=== PATIENT | male | born 1945 | race Two or more races ===

== ENCOUNTER 2024-10-08 16:27 | Inpatient (IN) | payer OTHER ==
[~2024-10-08] VITALS: Ht 167.6 cm; Wt 84.7 kg
[2024-10-08] VITALS (7 sets, daily range): BP systolic 115–150; BP diastolic 73–100; PULSE 115–116; RESP 17–20; TEMP 97.8; O2SAT 92–100
--- NOTE | 2024-10-08 17:13 | DVH ---
CHEST RADIOGRAPH Indication: sob/weak Technique: Single frontal view of the chest was obtained COMPARISON: None FINDINGS: Lines and Tubes: Median sternotomy Lungs: Multifocal airspace disease Pleura: Small right pleural effusion No pneumothorax. Cardiomediastinal contours: Cardiomegaly Bones: Unremarkable IMPRESSION: Pulmonary edema
--- NOTE | 2024-10-08 17:16 | ED.PDOC ---
HPI Comments 78 y/o obese M is BIBA for c/o generalized weakness and shortness of breath, today. Per EMS report, patient endorses attending his spouse's appointment at a [facility] when staff began noticing him pale and maher in appearance and finding him hypertensive and hypoxic after checking his vitals then. Patient reports on being weak for several months. He reports being compliant taking his medications, this morning. Patient denies any chest pain, cough, congestion, fever, chills, or other associated symptoms or modifying factors at this time. En route, patient was placed on 2LPM O2 en route Vitals on scene: Blood pressure of 169/88, pulse rate of 110, respiratory rate of 16, and a SpO2 of 90%RA, blood glucose 233 Vitals upon ED arrival: Blood pressure of 170/89, pulse of 116, respiratory rate of 18, and a Spo2 of 99% on 2LPM NC Past medical history: DMII w/peripheral neuropathy, HLD, HTN, CKFIV, CVA, NSTEMI, COPD, asthma, angina, atherosclerosis or aorta, CAD, osteoarthritis, medication noncompliance, pulmonary HTN, hyperparathyroidism, gout, BPH, chronic respiratory failure, TIA, urinary bladder cancer, osteopenia, sleep apnea, anemia, obesity Past surgical history: cystoscopy and transurethral resection of bladder tumor, colonoscopy, hemorrhoidectomy, appendectomy, nasal polypectomy, angiogram, cataract surgery, CABG, thoracoscopic lobectomy Former tobacco cigarette smoker HPI: Poor Historian. Past Medical History: Past Surgical History: REVIEW OF SYSTEMS: CONSTITUTIONAL: Denies acute: fever, diaphoresis, chills, HEAD: Denies acute: headache, photophobia Eyes: Denies acute: Double vision, vision loss, eye pain, eye discharge. EARS: Denies acute: tinnitus, hearing loss, ear discharge, ear pain, THROAT: Denies acute: sore throat, swelling, difficulty swallowing , pain with swallowing, change in voice. NECK: Denies acute: neck pain, neck swelling, stiff neck. HEART: Denies acute : chest pain, palpitations, LUNGS: Denies acute: wheezing, cough, hemoptysis ABDOMEN: Denies acute: abdominal pain, Nausea, Vomiting, diarrhea, melena , hematemesis, hematochezia SKIN: Denies acute: rash, redness, lesions, itchiness. EXTREMITIES: Denies acute: calf pain, numbness, tingling, weakness, denies pain in extremity. Denies acute: Low back pain. Neuro: Denies acute: focal neurological deficit, motor or sensory focal neurological deficit, tremors, seizure like activity, confusion, dizziness, change in mental status, loss of bowel or bladder function, cauda equina like symptoms. : Denies acute: dysuria, hematuria, flank pain, increase in urinary frequency. PSYCH: Denies acute: hallucination, suicidal ideation, homicidal ideation. PHYSICAL EXAM: General: ----[id number]----acute distress, awake and alert. Head: normocephalic, atraumatic. Neck: supple, trachea is midline, no swelling. Throat: Normal phonation. Eyes:, no erythema, no purulent discharge, no proptosis, no icterus. Heart: regular tachycardic, no significant murmur appreciated. Lungs: no apparent respiratory distress, Able to speak in full sentences. No wheezing, no rhonchi, no crackles. No stridors Clear to auscultation bilaterally. Abdomen: non tender to palpation, non distended, soft, no guarding, no rebound, + bowel sounds. Neuro: Awake, Alert, oriented to name, self, situation, follows commands GCS=15. Speech is normal. Skin: no petechia, no purpura, no cyanosis, non-pale, not jaundice. Lower extremities: --2/4 b/l - Pitting edema no deformity, no focal swelling, no calf TTP. Makes eye contact. moves all four extremities. Face: no apparent facial droop. ED COURSE: At this time 9:44 p.m. our I spoke with Dr. Phillips the office machine embossograph operator on-call again updated him of the 3rd troponin that is rising and patient tachycardic. He he agrees with our heparin treatment and said he will follow up with the patient in consult. No further recommendations. Time Seen by MD: 16:30 Reviewed Notes: Nurses Notes, Medications, Allergies Allergies: Coded Allergies: Ibuprofen (Verified Allergy, Intermediate, 10/08/24) Home Meds Reported Medications Clopidogrel Bisulfate (Plavix) 75 Mg Tab, 1 TAB PO DAILY, #90 TAB 1 Refill 10/08/24 Information Source: Patient, Emergency Med Personnel Mode of Arrival: Ambulatory Was a procedure done? Was a procedure done?: No CP Differential Dx Differential Diagnosis: Other (DDx include ACS, unstable angina, anxiety, PE, pneumothroax, neoplasm, cardiac ischemia, COPD, asthma, CHF, pleural effusion, tobacco abuse, pneumonia, hypoxia, hypercapnia, anemia., infection/sepsis., pulmonary edema. Asthma, Cardiac tamponade, infection.) Differential Diagnosis: Other X-Ray, Labs, Meds, VS Vital Signs Date Time Temp Pulse Resp B/P (MAP) Pulse Ox O2 Delivery O2 Flow Rate FiO2 10/08/24 19:25 115 19 99 Nasal Cannula* 2 28 10/08/24 19:25 98.6 115 19 156/101 (119) 99 98.6 10/08/24 19:22 115 10/08/24 19:02 115 17 99 Nasal Cannula* 2 28 10/08/24 18:51 98.3 115 17 150/100 (117) 99 98.3 10/08/24 18:43 150/100 10/08/24 18:15 115 10/08/24 17:31 115 10/08/24 17:00 98.0 116 16 170/89 (116) 99 98.0 10/08/24 16:39 115 Lab Test 10/08/24 18:07 10/08/24 17:02 Range/Units Troponin I High Sensitivity 49 45 </=54 ng/L White Blood Count 7.6 4.4-10.8 10^3/uL Red Blood Count 3.93 L 4.5-5.90 10^6/uL Hemoglobin 11.2 L 13.5-17.5 g/dL Hematocrit 35.0 L 41.0-53.0 % Mean Corpuscular Volume 89.2 80.0-100.0 fL Mean Corpuscular Hemoglobin 28.5 28.0-32.0 pg Mean Corpuscular Hemoglobin Concent 32.0 32.0-36.0 g/dL Red Cell Distribution Width 18.0 H 11.8-14.3 % Platelet Count 192 140-450 10^3/uL Mean Platelet Volume 9.7 6.9-10.8 fL Neutrophils (%) (Auto) 75.2 37.0-80.0 % Lymphocytes (%) (Auto) 15.6 10.0-50.0 % Monocytes (%) (Auto) 6.5 0.0-12.0 % Eosinophils (%) (Auto) 2.0 0.0-7.0 % Basophils (%) (Auto) 0.7 0.0-2.0 % Neutrophils # (Auto) 5.7 1.6-8.6 10 ^3/uL Lymphocytes # (Auto) 1.2 0.4-5.4 10 ^3/uL Monocytes # (Auto) 0.5 0-1.3 10 ^3/uL Eosinophils # (Auto) 0.2 0-0.8 10 ^3/uL Basophils # (Auto) 0.1 0-0.2 10 ^3/uL Nucleated Red Blood Cells 0.0 % Prothrombin Time 10.9 9.3-11.8 sec Prothrombin Time INR 1.03 0.9-1.15 Activated Partial Thromboplast Time 25.6 24.5-34.5 SEC D-Dimer, Quantitative 3.85 H 0.0-0.49 mg/L FEU Sodium Level 139 136-145 mmol/L Potassium Level 5.2 H 3.5-5.1 mmol/L Chloride Level 108 H 98-107 mmol/L Carbon Dioxide Level 22 20-31 mmol/L Anion Gap 9 5-15 Blood Urea Nitrogen 52 H 9-23 mg/dL Creatinine 3.51 H 0.700-1.30 mg/dL Glomerular Filtration Rate Calc 17 >90 mL/min BUN/Creatinine Ratio 14.8 10.0-20.0 Serum Glucose 256 H 74-106 mg/dL Lactic Acid Level 1.1 0.4-2.0 mmol/L Calcium Level 8.9 8.7-10.4 mg/dL Magnesium Level 1.6 1.6-2.6 mg/dL Total Bilirubin 0.3 0.2-1.0 mg/dL Aspartate Amino Transferase (AST) 25 13-40 U/L Alanine Aminotransferase (ALT) 28 7-40 U/L Alkaline Phosphatase 94 46-116 U/L B-Type Natriuretic Peptide 311.28 0-100 pg/mL Total Protein 6.2 5.7-8.2 g/dL Albumin 3.7 3.2-4.8 g/dL [place] [id number] Ph: [phone] DIAGNOSTIC IMAGING Diagnostic Imaging Report : [id number] Signed PATIENT: BENITA CHANDLER ACCT: [id number] UNIT: [id number] : 1945 LOC: [facility] ROOM / BED: [facility] / A AGE / SEX: 78 / M ADM STATUS: ADM IN SERVICE 39 ORDERING PHYSICIAN: MCKAYLA SORIA DO PROCEDURE(s): BLDVT - BiLat Lower DVT REASON: sob ORDER NUMBER(s): [id number], ACCESSION NUMBER(s): [id number] Bilateral lower extremity venous duplex Clinical History: sob Comparison: None Technique: Duplex Doppler evaluation of the deep venous systems of both lower extremities from the common femoral veins to the popliteal veins including color Doppler and spectral/pulsed waveform analysis was performed. Findings: RIGHT SIDE: The common femoral vein demonstrates appropriate compressibility and waveform variability. There is compressibility/patency of the great saphenous vein at the proximal thigh. The femoral vein demonstrates appropriate compressibility and waveform variability. The deep femoral vein demonstrates appropriate compressibility and waveform variability. The popliteal vein demonstrates appropriate compressibility and waveform variability. There is normal compressibility at the tibioperoneal trunk. LEFT SIDE: The common femoral vein demonstrates appropriate compressibility and waveform variability. There is compressibility/patency of the great saphenous vein at the proximal thigh. The femoral vein demonstrates appropriate compressibility and waveform variability. The deep femoral vein demonstrates appropriate compressibility and waveform variability. The popliteal vein demonstrates appropriate compressibility and waveform variability. There is normal compressibility at the tibioperoneal trunk. Impression: 1. No right or left femoropopliteal venous thrombosis. HS:Y ATED BY: LAURA LUIS Jr., DO DICTATED DATE/TIME: 10/08/242307 SIGNED BY: LAURA LUIS Jr., DO SIGNED DATE/TIME: 10/08/242307 CC: [address] [address] Ph: [phone] DIAGNOSTIC IMAGING Diagnostic Imaging Report : [id number] Signed PATIENT: BENITA CHANDLER ACCT: [id number] UNIT: [id number] : 1945 LOC: OVERFLOW ROOM / BED: [facility] / A AGE / SEX: 78 / M ADM STATUS: ADM IN SERVICE 25 ORDERING PHYSICIAN: MCKAYLA SORIA DO PROCEDURE(s): CX2CT - CHEST WITHOUT CONTRAST REASON: sob ORDER NUMBER(s): [id number], ACCESSION NUMBER(s): [id number] Procedure: CT CHEST WITHOUT CONTRAST Reason for study/Clinical History: sob Comparison Study: None available at time of dictation. Exam Date: 10/08/2024 09:11 PM TECHNIQUE: Multidetector CT of the chest was performed from the lung apices to the upper abdomen without the use of intravenous contract. Axial, coronal and sagittal multiplanar reformats were performed. Radiation Dose Information: CT Dose: CTDI volume is 29.22 mGy. Dose-length product is 1194.1 mGy*cm The dose indicators for CT are the volume Computed Tomography (CT) Dose Index (CTDIvol) and the Dose Length Product (DLP), and are measured in units of mGy and mGy-cm, respectively. These indicators are not patient dose, but values generated from the CT scanner acquisition factors. The report includes radiation exposure data for exposures received during this examination. FINDINGS: Lower neck: Normal thyroid. Lungs: Small to moderate right pleural effusion with trace left pleural effusion. Heart/Vascular Structures: Normal heart size. No pericardial effusion. Lymph Nodes: No adenopathy Pleura: No pleural effusion or significant pneumothorax. Musculoskeletal: No acute osseous abnormality. Sternal wire sutures in place Soft tissues: Normal. Upper abdomen: Limited portions of the upper abdomen are unremarkable. IMPRESSION: 1. Small to moderate right pleural effusion with atelectasis in the right base. Radiation optimization: All CT scans at this facility use at least one of these dose optimization techniques: automated exposure control mA and/or kV adjustment per patient size (includes targeted exams where dose is matched to clinical indication) or iterative reconstruction. HS:Y ATED BY: LAURA LUIS Jr., DO DICTATED DATE/TIME: 10/08/242139 SIGNED BY: LAURA LUIS Jr., DO SIGNED DATE/TIME: 10/08/242139 CC: [place] [address] Ph: [phone] DIAGNOSTIC IMAGING Diagnostic Imaging Report : [id number] Signed PATIENT: BENITA CHANDLER ACCT: [id number] UNIT: [id number] : 1945 LOC: ER ROOM / BED: / AGE / SEX: 78 / M ADM STATUS: REG ER SERVICE 40 ORDERING PHYSICIAN: MCKAYLA SORIA DO PROCEDURE(s): CXRP - CHEST PORTABLE REASON: sob/weak ORDER NUMBER(s): [id number], ACCESSION NUMBER(s): [id number] CHEST RADIOGRAPH Indication: sob/weak Technique: Single frontal view of the chest was obtained COMPARISON: None FINDINGS: Lines and Tubes: Median sternotomy Lungs: Multifocal airspace disease Pleura: Small right pleural effusion No pneumothorax. Cardiomediastinal contours: Cardiomegaly Bones: Unremarkable IMPRESSION: Pulmonary edema ATED BY: DYLAN SPEAR MD DICTATED DATE/TIME: 10/08/241710 SIGNED BY: DYLAN SPEAR MD SIGNED DATE/TIME: 10/08/241710 CC: Time of 1ST Reevaluation: 16:30 Reevaluation 1ST: Unchanged Time of 2ND Reevaluation: 17:41 (Case discussed with our office machine embossograph operator Dr. Phillips. This is a new onset left bundle-branch block. I discussed the case with [facility] physician who says there were no records of the patient having left bundle-branch block in the past. Patient denies any chest pain. Our cardio logist recommends that the troponin is elevated to call the garage laborer and he will taken to the garage laborer.The case was discussed with the [facility] admitting team (HPI, physical exam, labs and diagnostic tests that were available at the time of disposition, ED course, treatment plan) on the phone. They authorized us to keep the patient our facility given his presentation and condition. Dr. Woodall. Authorization #[id number]) Time of 3RD Reevaluation: 20:25 (I spoke with the son and the at bedside. They said that patient has been feeling this way for a number of weeks since he got his most recent COVID shots which she did not want to have. He has been weak sleeping more often and dizzy and short of breath. They went to [facility] many times and they were not properly evaluated according to the family. Now on reassessment patient with minimal movement he becomes more tachycardic and feels more short of breath and weak.) Patient Education/Counseling: Diagnosis, Treatment Family Education/Counseling: Diagnosis, Treatment Comments Given the patient's tachycardia and shortness of breath and slight hypoxemia and generalized weakness, patient has multiple comorbidities and surgeries. Patient denies bleeding from anywhere. Patient has a high probability for PE. D-dimer is elevated. I started heparin bolus and a drip as anticoagulation. I am unable to obtain a CT angiogram of the chest given the patient's kidney function. V/Q scan is not available at this time. I discussed anticoagulation risks and benefits with the son at bedside and with the patient. The patient denies any active bleeding from anywhere or any recent surgeries. Patient presented with the above HPI.--hypoxemia and generalized weakness and tachycardia----workup was initiated. patient was found with the above mentioned diagnosis. the following medications were ordered: please refer to order lists of meds and tests obtained by myself Dr. Soria. Patient ED course and VS have been stabilized. Patient has been reassessed in the ED and remained in a stable condition. Pertinent incidental findings were discussed with the patient and/or family. Patient/family voices understanding and is agreeable with plan. Patient has been observed in the ED adequate length of time to insure improvement/stability. Escalation of care considered: Consideration of escalation to observation or admission Cardiology was consulted. [facility] was consulted. Patient was ADMITTED to the medicine team for further evaluation and treatment of their presentation. All the reports of any imaging studies that were ordered by myself were reviewed by myself. Departure 1 Departure Time of Disposition: 17:44 Impression: Primary Impression: Pulmonary edema Additional Impressions: Left bundle branch block Generalized weakness Pleural effusion Chronic kidney disease Disposition: ADMITTED INPATIENT Admit to: [facility] Condition: Guarded Discharged With: Self Critical Care Note Critical Care Time?: Yes (90 min-critical care time only) Heart Score Heart Score: Heart Score Response (Comments) Value History Highly Suspicious [address]-Deviation 2 Age >65 2 Risk Factors 1 or 2 risk factors 1 Troponin 1-2 x's Normal limit 1 Total 8 I personally scribed for MCKAYLA SORIA DO ([email or web address]) on 10/08/24 at 17:16. Mandie ctronically submitted by Ramana Alonzo ([email or web address]). MCKAYLA SORIA DO Oct 08, 2024 17:16
[2024-10-08 17:22] LABS: Basophils # (auto) 0.1 10 ^3/uL (0-0.2); Basophils % (auto) 0.7 % (0.0-2.0); Eosinophils # (auto) 0.2 10 ^3/uL (0-0.8); Hemoglobin 11.2 g/dL (13.5-17.5); Lymphocytes # (auto) 1.2 10 ^3/uL (0.4-5.4); Lymphocytes % (auto) 15.6 % (10.0-50.0); Mean Corpuscular Hemoglobin 28.5 pg (28.0-32.0); Mean Corpuscular Volume 89.2 fL (80.0-100.0); Monocytes # (auto) 0.5 10 ^3/uL (0-1.3); Monocytes % (auto) 6.5 % (0.0-12.0); Neutrophils # (auto) 5.7 10 ^3/uL (1.6-8.6); Neutrophils % (auto) 75.2 % (37.0-80.0); Platelet Count (auto) 192 10^3/uL (140-450); Red Blood Cells 3.93 10^6/uL (4.5-5.90); White Blood Cell 7.6 10^3/uL (4.4-10.8)
[2024-10-08 18:03] LABS: Alanine Aminotransferase 28 U/L (7-40); Albumin 3.7 g/dL (3.2-4.8); Alkaline Phosphatase 94 U/L (46-116); Anion Gap 9 (5-15); Aspartate Aminotransferase 25 U/L (13-40); BUN/Creatinine Ratio 14.8 (10.0-20.0); Bilirubin, Total 0.3 mg/dL (0.2-1.0); Calcium 8.9 mg/dL (8.7-10.4); Carbon Dioxide 22 mmol/L (20-31); Magnesium 1.6 mg/dL (1.6-2.6); Sodium 139 mmol/L (136-145); Total Protein 6.2 g/dL (5.7-8.2)
[2024-10-08 18:04] LABS: Blood Urea Nitrogen 52 mg/dL (9-23); Chloride 108 mmol/L (98-107); Glucose 256 mg/dL (74-106); Potassium 5.2 mmol/L (3.5-5.1)
--- NOTE | 2024-10-08 18:17 | ECG ---
[facility] Test Date: 2024-10-08 Test Time: 16:39:03 Pat Name: BENITA CHANDLER Department: ED Room: 0295T Gender: M Residential Treatment Counselor: maria de jesus : 1945 Requested By: MCKAYLA SORIA Order Number: [id number] Reading MD: Benita Quinn Measurements Intervals [place] Rate: 115 P: 99 [place]: 87 QRS: -51 QRSD: 152 T: 82 QT: 391 QTc: 541 Interpretive Statements Sinus tachycardia Left bundle branch block Electronically Signed On 10-10-2024 20:31:54 PDT by Benita Quinn Please click the below link to view image of tracing.
--- NOTE | 2024-10-08 18:17 | ECG ---
[facility] Test Date: 2024-10-08 Test Time: 17:31:29 Pat Name: BENITA CHANDLER Department: ED Room: 0295T Gender: M Senior Editor: maria de jesus : 1945 Requested By: MCKAYLA SORIA Order Number: [id number] Reading MD: Benita Quinn Measurements Intervals [place] Rate: 115 P: 123 [place]: 100 QRS: -54 QRSD: 149 T: 67 QT: 385 QTc: 533 Interpretive Statements Sinus tachycardia Left bundle branch block Electronically Signed On 10-10-2024 20:32:07 PDT by Benita Quinn Please click the below link to view image of tracing.
[2024-10-08] MEDS: FUROSEMIDE 100 MG/10ML VIAL IV ONE (18:43)
[2024-10-08] MEDS: HEPARIN SODIUM (PORCINE) 5000 UNITS/ML 1ML VIAL IV ONE (18:45)
[2024-10-08 18:56] LABS: INR 1.03 (0.9-1.15); Partial Thromboplastin Time 25.6 SEC (24.5-34.5); Prothrombin Time 10.9 sec (9.3-11.8)
[2024-10-08] MEDS ORDERED: MORPHINE SULFATE INJ 2 MG/ml SYRG IV PRN (20:00)
[2024-10-08] MEDS ORDERED: LORazepam 0.5 MG TAB PO PRN (20:00)
[2024-10-08] MEDS ORDERED: DEXTROSE (50%) 50ML SYRG IV PRN (20:00)
[2024-10-08] MEDS ORDERED: ONDANSETRON HCL 4 MG/2 ML VIAL IV PRN (20:00)
--- NOTE | 2024-10-08 20:05 | DVHHP2 ---
History of Present Illness Reason for Visit: sob History of Present Illness 70-year-old obese male comes to the ED for evaluation of shortness of breath patient was initially seen at urgent care for primary for Hernandez patient was noticed to be hypertensive short of breath and recommended he get evaluated the ED on ED evaluation the patient was shown have signs of fluid overload hospital has been extensive history of an NSTEMI COPD asthma diabetes type 2 as well as pulmonary hypertension and chronic respiratory failure patient was suggested for admission and further evaluation for management of shortness of breath Cardiovascular: CAD, HTN Pulmonary: COPD Review of Systems Constitutional: No: Fever, Chills, Sweats, Weakness, Malaise, Other Eyes: No: Pain, Vision change, Conjunctivae inflammation, Eyelid inflammation, Other, Redness ENT: No: Ear pain, Ear discharge, Nose pain, Nose discharge, Nose congestion, Mouth pain, Mouth swelling, Throat pain, Throat swelling, Other Respiratory: Cough, Shortness of breath, SOB with excertion Cardiovascular: Chest Pain; No: Palpitations, Orthopnea, Paroxysmal Noc. Dyspnea, Edema, Lt Headedness, Other Gastrointestinal: No: Nausea, Vomiting, Abdominal Pain, Diarrhea, Constipation, Melena, Hematochezia, Other Genitourinary: No Dysuria, No Frequency, No Incontinence, No Hematuria, No Retention, No Other Musculoskeletal: No: other, neck pain, shoulder pain, arm pain, back pain, hand pain, leg pain, foot pain Skin: No: Rash, Lesions, Jaundice, Bruising, Other Neurological: Weakness; No: Numbness, Incoordination, Change in speech, Confusion, Seizures, Other Allergies: Coded Allergies: Ibuprofen (Verified Allergy, Intermediate, 10/08/24) Medications Current Medications Medications Dose Ordered Sig/[place] Route Start Time Stop Time Status Last Admin Dose Admin Heparin Sodium/ Dextrose 250 ml @ 15.57 mls/ hr [id number] IV 10/08/24 18:30 UNV Exam Vital Signs Vital Signs Date Time Temp Pulse Resp B/P (MAP) Pulse Ox O2 Delivery O2 Flow Rate FiO2 10/08/24 19:22 115 10/08/24 19:02 17 99 Nasal Cannula* 2 28 10/08/24 18:51 98.3 150/100 (117) 98.3 Exam General: moderate distress, awake and alert. Head: normocephalic, atraumatic. Neck: supple, trachea is midline, no swelling. Throat: Normal phonation. Eyes:, no erythema, no purulent discharge, no proptosis, no icterus. Heart: regular tachycardic, no significant murmur appreciated. Lungs: no apparent respiratory distress, Able to speak in full sentences. No wheezing, no rhonchi, mild crackles. No stridors Abdomen: non tender to palpation, non distended, soft, no guarding, no rebound, + bowel sounds. Neuro: Awake, Alert, oriented to name, self, situation, follows commands GCS=15. Speech is normal. Skin: no petechia, no purpura, no cyanosis, non-pale, not jaundice. Lower extremities: --2/4 b/l - Pitting edema no deformity, no focal swelling, no calf TTP. moves all four extremities. Labs/Xrays Labs Test 10/08/24 18:07 10/08/24 17:02 Range/Units Troponin I High Sensitivity 49 </=54 ng/L White Blood Count 7.6 4.4-10.8 10^3/uL Red Blood Count 3.93 L 4.5-5.90 10^6/uL Hemoglobin 11.2 L 13.5-17.5 g/dL Hematocrit 35.0 L 41.0-53.0 % Mean Corpuscular Volume 89.2 80.0-100.0 fL Mean Corpuscular Hemoglobin 28.5 28.0-32.0 pg Mean Corpuscular Hemoglobin Concent 32.0 32.0-36.0 g/dL Red Cell Distribution Width 18.0 H 11.8-14.3 % Platelet Count 192 140-450 10^3/uL Mean Platelet Volume 9.7 6.9-10.8 fL Neutrophils (%) (Auto) 75.2 37.0-80.0 % Lymphocytes (%) (Auto) 15.6 10.0-50.0 % Monocytes (%) (Auto) 6.5 0.0-12.0 % Eosinophils (%) (Auto) 2.0 0.0-7.0 % Basophils (%) (Auto) 0.7 0.0-2.0 % Neutrophils # (Auto) 5.7 1.6-8.6 10 ^3/uL Lymphocytes # (Auto) 1.2 0.4-5.4 10 ^3/uL Monocytes # (Auto) 0.5 0-1.3 10 ^3/uL Eosinophils # (Auto) 0.2 0-0.8 10 ^3/uL Basophils # (Auto) 0.1 0-0.2 10 ^3/uL Nucleated Red Blood Cells 0.0 % Prothrombin Time 10.9 9.3-11.8 sec Prothrombin Time INR 1.03 0.9-1.15 Activated Partial Thromboplast Time 25.6 24.5-34.5 SEC D-Dimer, Quantitative 3.85 H 0.0-0.49 mg/L FEU Sodium Level 139 136-145 mmol/L Potassium Level 5.2 H 3.5-5.1 mmol/L Chloride Level 108 H 98-107 mmol/L Carbon Dioxide Level 22 20-31 mmol/L Anion Gap 9 5-15 Blood Urea Nitrogen 52 H 9-23 mg/dL Creatinine 3.51 H 0.700-1.30 mg/dL Glomerular Filtration Rate Calc 17 >90 mL/min BUN/Creatinine Ratio 14.8 10.0-20.0 Serum Glucose 256 H 74-106 mg/dL Lactic Acid Level 1.1 0.4-2.0 mmol/L Calcium Level 8.9 8.7-10.4 mg/dL Magnesium Level 1.6 1.6-2.6 mg/dL Total Bilirubin 0.3 0.2-1.0 mg/dL Aspartate Amino Transferase (AST) 25 13-40 U/L Alanine Aminotransferase (ALT) 28 7-40 U/L Alkaline Phosphatase 94 46-116 U/L B-Type Natriuretic Peptide 311.28 0-100 pg/mL Total Protein 6.2 5.7-8.2 g/dL Albumin 3.7 3.2-4.8 g/dL Assessment/Plan Assessment/Plan admit telemetry pulmonary edema suspected left bundle-branch block fluid overload chronic respiratory failure history of COPD hypertension Plan discussed with: Patient My Orders Orders - KRISTINE DEL CID MD Procedure Category Date Status Time Glucose Blood PHA 10/08/24 Transmitted (Accu-Chek Comfort 22:00 Agressive Insulin Ss PHA 10/09/24 Transmitted 07:00 Bedtime Insulin Ss PHA 10/08/24 Transmitted 22:00 Dextrose 50% Syringe PHA 10/08/24 Transmitted 20:00 Admit ADMIT 10/08/24 Transmitted 19:53 Code Status CODE 10/08/24 Transmitted 19:53 Vital Signs STACEY 10/08/24 Transmitted 19:53 Review Orders With STACEY 10/08/24 Transmitted Adm. 19:53 Consistent DIET 10/09/24 Transmitted Carb(Ccho)Diabetes Breakfast Lorazepam Tablet PHA 10/08/24 Transmitted (Ativan Tablet) 20:00 Docusate Sodium PHA 10/08/24 Transmitted Capsule (Colace 20:00 Acetaminophen Tablet PHA 10/08/24 Transmitted (Tylenol Tablet) 20:00 Notify Md Of Changes [facility] 10/08/24 Transmitted From Base 19:53 Advance Directive STACEY 10/08/24 Transmitted 19:53 Patient Condition ORDERS 10/08/24 Transmitted 19:53 Allergies STACEY 10/08/24 Transmitted 19:53 Ondansetron Hcl PHA 10/08/24 Transmitted (Zofran) 20:00 Morphine Sulfate PHA 10/08/24 Transmitted Injection 20:00 Notify Md Of Changes [facility] 10/08/24 Transmitted From Base 19:53 Make Ready Mechanic For [facility] 10/08/24 Transmitted 24 Hours 19:53 Oxygen By Nasal RT 10/08/24 Transmitted Cannula 19:53 Furosemide Injection PHA 10/08/24 Transmitted (Lasix Injection) 22:00 Albuterol Medneb PHA 10/08/24 Verified (Ventolin Medneb) 20:00 Ceftriaxone Ivpb PHA 10/08/24 Verified Rocephin 20:00 Date of Service: Oct 08, 2024 Billing Provider: KRISTINE DEL CID MD Common Visit Codes: [id number] INP/OBS CARE (HIGH) KRISTINE DEL CID MD Oct 08, 2024 20:05
[2024-10-08] MEDS: HEPARIN DRIP/D5W 100UNITS/ML 250 ML IV SCH (20:13)
[2024-10-08 20:30] LABS: Urine Bacteria None Seen /hpf (None Seen)
[2024-10-08 20:57] LABS: Base Excess -2.7 mmol/L (-2.0-3.0)
[2024-10-08 21:05] LABS: Urine Blood 1+ /uL (Negative); Urine Clarity Clear (Clear); Urine Color Colorless (Yellow); Urine Protein, UAD 2+ (Negative); Urine Squamous Epithelial Cell None Seen /hpf (<5); Urine Urobilinogen Normal (Negative); Urine WBC 1 /HPF (0-3)
--- NOTE | 2024-10-08 21:43 | DVH ---
Procedure: CT CHEST WITHOUT CONTRAST Reason for study/Clinical History: sob Comparison Study: None available at time of dictation. Exam Date: 10/08/2024 09:11 PM TECHNIQUE: Multidetector CT of the chest was performed from the lung apices to the upper abdomen with out the use of intravenous contract. Axial, coronal and sagittal multiplanar reformats were performed . Radiation Dose Information: CT Dose: CTDI volume is 29.22 mGy. Dose-length product is 1194.1 mGy*cm The dose indicators for CT are the volume Computed Tomography (CT) Dose Index (CTDIvol) and the Dose Length Product (DLP), and are measured in units of mGy and mGy-cm, respectively. These indicators are not patient dose, but values generated from the CT scanner acquisition factors. The report includes radiation exposure data for exposures received during this examination. FINDINGS: Lower neck: Normal thyroid. Lungs: Small to moderate right pleural effusion with trace left pleural effusion. Heart/Vascular Structures: Normal heart size. No pericardial effusion. Lymph Nodes: No adenopathy Pleura: No pleural effusion or significant pneumothorax. Musculoskeletal: No acute osseous abnormality. Sternal wire sutures in place Soft tissues: Normal. Upper abdomen: Limited portions of the upper abdomen are unremarkable. IMPRESSION: 1. Small to moderate right pleural effusion with atelectasis in the right base. Radiation optimization: All CT scans at this facility use at least one of these dose optimization escobar hniques: automated exposure control mA and/or kV adjustment per patient size (includes targeted exam s where dose is matched to clinical indication) or iterative reconstruction. HS:Y
[2024-10-08] MEDS: cefTRIAXone 1GM/50ML D5W 50 ML IV SCH (22:05)
[2024-10-08] MEDS: InsuLIN REG 1unit/0.01ml Soln (100units/ml) SC SCH (22:33)
[2024-10-08] MEDS: ACCU-CHEK COMFORT CURVE STRIP VI SCH (22:34)
[2024-10-08] MEDS ORDERED: CLOP75TA28 PO (23:00)
--- NOTE | 2024-10-08 23:10 | DVH ---
Bilateral lower extremity venous duplex Clinical History: sob Comparison: None Technique: Duplex Doppler evaluation of the deep venous systems of both lower extremities from the common femora l veins to the popliteal veins including color Doppler and spectral/pulsed waveform analysis was perf ormed. Findings: RIGHT SIDE: The common femoral vein demonstrates appropriate compressibility and waveform variability. There is compressibility/patency of the great saphenous vein at the proximal thigh. The femoral vein demonstrates appropriate compressibility and waveform variability. The deep femoral vein demonstrates appropriate compressibility and waveform variability. The popliteal vein demonstrates appropriate compressibility and waveform variability. There is normal compressibility at the tibioperoneal trunk. LEFT SIDE: The common femoral vein demonstrates appropriate compressibility and waveform variability. There is compressibility/patency of the great saphenous vein at the proximal thigh. The femoral vein demonstrates appropriate compressibility and waveform variability. The deep femoral vein demonstrates appropriate compressibility and waveform variability. The popliteal vein demonstrates appropriate compressibility and waveform variability. There is normal compressibility at the tibioperoneal trunk. Impression: 1. No right or left femoropopliteal venous thrombosis. HS:Y
[2024-10-09] VITALS (14 sets, daily range): BP systolic 104–141; BP diastolic 52–93; PULSE 81–135; RESP 16–20; TEMP 97.5–98.9; O2SAT 95–100
[2024-10-09 03:10] LABS: Basophils # (auto) 0.1 10 ^3/uL (0-0.2); Basophils % (auto) 1.1 % (0.0-2.0); Eosinophils # (auto) 0.3 10 ^3/uL (0-0.8); Eosinophils % (auto) 4.3 % (0.0-7.0); Hematocrit 34.1 % (41.0-53.0); Lymphocytes # (auto) 2.2 10 ^3/uL (0.4-5.4); Lymphocytes % (auto) 28.2 % (10.0-50.0); Mean Corpuscular Hemoglobin 28.4 pg (28.0-32.0); Mean Corpuscular Hgb Conc. 32.2 g/dL (32.0-36.0); Mean Corpuscular Volume 88.4 fL (80.0-100.0); Monocytes # (auto) 0.7 10 ^3/uL (0-1.3); Monocytes % (auto) 9.2 % (0.0-12.0); Neutrophils # (auto) 4.5 10 ^3/uL (1.6-8.6); Neutrophils % (auto) 57.2 % (37.0-80.0); Nucleated Red Blood Cells % 0.1 %; Platelet Count (auto) 196 10^3/uL (140-450); Red Blood Cells 3.86 10^6/uL (4.5-5.90); Red Cell Distribution Width 17.7 % (11.8-14.3); White Blood Cell 7.8 10^3/uL (4.4-10.8)
[2024-10-09 03:19] LABS: INR 1.07 (0.9-1.15); Partial Thromboplastin Time 59.5 SEC (24.5-34.5); Prothrombin Time 11.3 sec (9.3-11.8)
[2024-10-09] MEDS: FUROSEMIDE 40 MG/4 ML VIAL IV SCH (06:00)
[2024-10-09] MEDS: InsuLIN REG 1unit/0.01ml Soln (100units/ml) SC SCH (06:14)
[2024-10-09 11:30] LABS: INR 1.08 (0.9-1.15); Partial Thromboplastin Time 64.5 SEC (24.5-34.5); Prothrombin Time 11.4 sec (9.3-11.8)
--- NOTE | 2024-10-09 11:56 | CONS ---
Pharmacy Clinical Information: HEPARIN PER PHARMACY PTT RESULT 10/09/24@1027 = 64.5 RUN SAME RATE @16ML/HR NEXT PTT SCHEDULE 10/09/24@1600 COMMUNICATED WITH BRENDA ESPINOZA. QI PHIPPS PHARMACIST Oct 09, 2024 11:56
--- NOTE | 2024-10-09 12:31 | DVHPN2 ---
Reviewed: Care Plan, H&P, Labs, Medications, Previous Orders, Radiology Changes from previous H/P or p: No Changes Eyes: No Pain, No Vision change, No Conjunctivae inflammation, No Eyelid inflammation, No Other, No Redness ENT: No Ear pain, No Ear discharge, No Nose pain, No Nose discharge, No Nose congestion, No Mouth pain, No Mouth swelling, No Throat pain, No Throat swelling, No Other Cardiovascular: Chest Pain; No Palpitations, No Orthopnea, No Paroxysmal Noc. Dyspnea, No Edema, No Lt Headedness, No Other Respiratory: Cough, Shortness of breath, SOB with excertion Gastrointestinal: No Nausea, No Vomiting, No Abdominal Pain, No Diarrhea, No Constipation, No Melena, No Hematochezia, No Other Genitourinary: No Dysuria, No Frequency, No Incontinence, No Hematuria, No Retention, No Other Musculoskeletal: No other, No neck pain, No shoulder pain, No arm pain, No back pain, No hand pain, No leg pain, No foot pain Skin: No Rash, No Lesions, No Jaundice, No Bruising, No Other Objective Vitals Vital Signs Date Time Temp Pulse Resp B/P (MAP) Pulse Ox O2 Delivery O2 Flow Rate FiO2 10/09/24 09:00 97.7 114 20 108/74 (85) 100 97.7 10/09/24 07:36 Nasal Cannula* 2 28 Intake/Output Intake and Output 10/09/24 07:00 Intake Total 256 ml Output Total 1250 ml Balance -994 ml Intake Oral 240 ml IV Total 16 ml Output Urine Total 1250 ml Medications Current Medications Medications Dose Ordered Sig/[place] Route Start Time Stop Time Status Last Admin Dose Admin Heparin Sodium/ Dextrose 250 ml @ 16 mls/hr [id number] IV 10/08/24 18:30 10/09/24 12:05 16 MLS/HR Diagnostic Test (Pha) 1 strip ACHS 10/08/24 22:00 10/09/24 11:30 1 STRIP Insulin Human Regular AC SC 10/09/24 07:00 10/09/24 12:04 2 UNITS Insulin Human Regular HS SC 10/08/24 22:00 10/08/24 22:33 3 UNITS Dextrose 50 ml UD PRN IV 10/08/24 20:00 Lorazepam 0.5 mg Q6HP PRN PO 10/08/24 20:00 Docusate Sodium 100 mg BIDPRN PRN PO 10/08/24 20:00 Acetaminophen 650 mg Q6HP PRN PO 10/08/24 20:00 Ondansetron HCl 4 mg Q4HP PRN IV 10/08/24 20:00 Morphine Sulfate 1 mg Q4HPRN PRN IV 10/08/24 20:00 Furosemide 40 mg BIDD IV 10/09/24 06:00 Albuterol 2.5 mg Q6HP PRN NEB 10/08/24 20:00 Ceftriaxone Sodium 50 ml @ 100 mls/hr DAILY IV 10/08/24 20:00 10/09/24 10:23 100 MLS/HR Laboratory Results Laboratory Tests 10/08/24 17:02 10/09/24 02:22 Chemistry Test 10/08/24 17:02 Albumin 3.7 g/dL (3.2-4.8) Calcium Level 8.9 mg/dL (8.7-10.4) Magnesium Level 1.6 mg/dL (1.6-2.6) Total Protein 6.2 g/dL (5.7-8.2) Coagulation Test 10/08/24 17:02 10/09/24 02:22 10/09/24 10:27 Prothrombin Time 10.9 sec (9.3-11.8) 11.3 sec (9.3-11.8) 11.4 sec (9.3-11.8) Prothrombin Time INR 1.03 (0.9-1.15) 1.07 (0.9-1.15) 1.08 (0.9-1.15) Activated Partial Thromboplast Time 25.6 SEC (24.5-34.5) 59.5 SEC (24.5-34.5) H 64.5 SEC (24.5-34.5) H D-Dimer, Quantitative 3.85 mg/L FEU (0.0-0.49) H Cardiac Markers Test 10/08/24 17:02 B-Type Natriuretic Peptide 311.28 pg/mL (0-100) LFT Test 10/08/24 17:02 Alanine Aminotransferase (ALT) 28 U/L (7-40) Alkaline Phosphatase 94 U/L (46-116) Aspartate Amino Transferase (AST) 25 U/L (13-40) Total Bilirubin 0.3 mg/dL (0.2-1.0) Urinalysis Test 10/08/24 20:15 Urine Color Colorless (Yellow) Urine Clarity Clear (Clear) Urine pH 6.0 (5.0-9.0) Urine Specific [place] 1.010 (1.001-1.035) Urine Protein 2+ (Negative) H Urine Ketones Negative (Negative) Urine Blood 1+ /uL (Negative) H Urine Nitrite Negative (Negative) Urine Bilirubin Negative (Negative) Urine Urobilinogen Normal mg/dL (Negative) Urine Leukocyte Esterase Negative /uL (Negative) Urine RBC 7 /hpf (0 - 3) Urine Microscopic WBC 1 /HPF (0-3) Urine Squamous Epithelial Cells None seen /hpf (<5) Urine Bacteria None seen /hpf (None Seen) Urine Glucose 2+ mg/dL (Normal) H Blood Gas Results Test 10/08/24 20:52 Arterial Blood pH 7.362 (7.350-7.450) FiO2 % 28.0 Labs and/or images reviewed: Labs reviewed by me, Image(s) reviewed by me Assessment/Plan Assessment/Plan Patient was transferred from urgent care, [facility] Acute on chronic hypoxic respiratory failure Right pleural effusion: Pulmonary consult for Dr. Groves Radiology consult for thoracentesis CKD 4 with fluid overload consult for Dr. Riojas Coronary artery disease History of [place] Hypertension Acute CHF exacerbation: Cardiology consult Acute COPD exacerbation Uncontrolled diabetes: Insulin sliding scale Acute hyperkalemia potassium 5.2. Treatment per protocol Elevated D-dimer 3.85 heparin drip per protocol DVT lower extremities ruled out V/Q scan pending History of CABG Jun 2023 History of lung cancer S/P right lower lobectomy November 2023 Time Spent 70 minutes Advanced care planning time 20 minutes Patient is full code Not stable for transfer to [facility] [phone] at bedside Plan discussed with: Patient My Orders Orders - LATOYA DOTSON MD Procedure Category Date Status Time Nm Vq Scan NM 10/09/24 Transmitted 12:19 Date of Service: Oct 09, 2024 Billing Provider: LATOYA DOTSON MD Common Visit Codes: [id number] CARE 30-74 MIN LATOYA DOTSON MD Oct 09, 2024 12:31
--- NOTE | 2024-10-09 14:40 | DVHINCON2 ---
Date Seen: Oct 09, 2024 Referring Physician MD Baldo Reason for Consultation CHF exacerbation, history of CABG History of Present Illness This is a 78-year-old male patient who presents to the emergency room with chief complaint of worsening shortness of breath that began on the day of admission. The patient reports that he was at his 's appointment at [facility] when staff noticed he was having labored breathing. He was found hypoxic when they assessed his vital signs. EMS was called and the patient was brought to this facility for further evaluation. Cardiology has been consulted at this time for CHF exacerbation. Initial twelve lead electrocardiogram reveals sinus tachycardia with left bundle branch block (unable to verify if this is new onset given patient has no previous visits to this facility). Initial troponin level of 45ng/L with flat trend thereafter. The patient denies any chest pain. Significant past medical history includes severe coronary artery disease status post quintuple bypass CABG (on Plavix), hypertension, dyslipidemia, COPD, lung cancer status post right lower lobe lobectomy, sleep apnea, bladder cancer status post cystoscopy and transurethral resection of bladder tumor, chronic kidney disease, insulin-dependent type 2 diabetes mellitus, peripheral neuropathy, osteoarthritis, TIA, previous tobacco use, and morbid obesity. The patient reports following up with a playground aide in the outpatient setting within the [facility]. Past Medical History Past medical history reviewed. No other significant than mentioned above. Past Surgical History Quintuple bypass CABG in 2023 Right lower lobe lobectomy in 2023 Appendectomy Hemorrhoidectomy Cystoscopy and transurethral resection of bladder tumor Family History: Patient reports no known family medical history. Family History Family history reviewed. Social History Patient has a 75 pack-year history (3PPD X 25 years), quit smoking approximately 25 years ago Patient denies any alcohol use Denies any drug use Allergies: Coded Allergies: Ibuprofen (Verified Allergy, Intermediate, 10/08/24) Home Meds Reported Medications Clopidogrel Bisulfate (Plavix) 75 Mg Tab, 1 TAB PO DAILY, #90 TAB 1 Refill 10/08/24 Home Meds Home medications reviewed. Current Medications Current Medications Medications (Trade) Dose Ordered Sig/Savanna Route PRN Reason Start Time Stop Time Status Last Admin Heparin Sodium/ Dextrose 250 ml @ 16 mls/hr [id number] IV 10/08/24 18:30 10/09/24 12:05 Diagnostic Test (Pha) (Accu-Chek Comfort Curve T) 1 strip ACHS 10/08/24 22:00 10/09/24 11:30 Insulin Human Regular (InsuLIN R) AC SC 10/09/24 07:00 10/09/24 12:04 Insulin Human Regular (InsuLIN R) HS SC 10/08/24 22:00 10/08/24 22:33 Dextrose 50 ml UD PRN IV Blood Sugar LESS THAN 60 10/08/24 20:00 Lorazepam (Ativan Tablet) 0.5 mg Q6HP PRN PO ANXIETY 10/08/24 20:00 Docusate Sodium (Colace Capsule) 100 mg BIDPRN PRN PO FOR CONSTIPATION 10/08/24 20:00 Acetaminophen (Tylenol Tablet) 650 mg Q6HP PRN PO PAIN SCALE 1-3 OR TEMP>100.4 10/08/24 20:00 Ondansetron HCl (Zofran) 4 mg Q4HP PRN IV NAUSEA / VOMITING 10/08/24 20:00 Morphine Sulfate 1 mg Q4HPRN PRN IV SEVERE PAIN (7-10 PAIN SCALE) 10/08/24 20:00 Furosemide (Lasix Injection) 40 mg BIDD IV 10/09/24 06:00 Albuterol (Ventolin Medneb) 2.5 mg Q6HP PRN NEB SHORTNESS OF BREATH 10/08/24 20:00 Ceftriaxone Sodium 50 ml @ 100 mls/hr DAILY IV 10/08/24 20:00 10/09/24 10:23 Review of Systems Constitutional: No symptom reported Ears, Nose, & Throat: No symptom reported Eyes: No symptom reported Neurological: No symptoms reported Pulmonary/Respiratory: Shortness of breath Cardiovascular: No symptom reported Gastrointestinal: No symptom reported Genitourinary: No symptom reported Musculoskeletal: No symptom reported Skin: No symptom reported Psychiatric: No symptom reported Endocrine: No symptom reported Hematologic/Lymphatic: No symptom reported Vital Signs Vital Signs Date Time Temp Pulse Resp B/P (MAP) Pulse Ox O2 Delivery O2 Flow Rate FiO2 10/09/24 10:00 100 Nasal Cannula 2.0 10/09/24 10:00 28 10/09/24 09:00 97.7 114 20 108/74 (85) 97.7 Physical Exam General Appearance: Cooperative. Morbidly obese Pulmonary/Respiratory: Coarse throughout Cardiovascular/Chest: Regular rate and rhythm. Peripheral Pulses: 2+ Radial (R). 2+ Radial (L). 2+ Pedal (R). 2+ Pedal (L) Abdominal Exam: Normal bowel sounds. Ankle Exam: 1+ pitting edema Lower extremities: 1+ pitting edema Neuro/Mental Status: A/OX4, coherent. Thoughts/Psych: Normal thought pattern. Appropriate mood and affect. Good judgment and insight. Appearance: No acute distress. Skin Exam: Normal inspection. Normal color. Warm and dry. Labs/Diagnostic Data Labs Test 10/09/24 11:50 10/09/24 10:27 10/09/24 02:22 10/08/24 20:58 Range/Units POC Glucose 141 H 70-106 mg/dl Prothrombin Time 11.4 9.3-11.8 sec Prothrombin Time INR 1.08 0.9-1.15 Activated Partial Thromboplast Time 64.5 H 24.5-34.5 SEC White Blood Count 7.8 4.4-10.8 10^3/uL Red Blood Count 3.86 L 4.5-5.90 10^6/uL Hemoglobin 11.0 L 13.5-17.5 g/dL Hematocrit 34.1 L 41.0-53.0 % Mean Corpuscular Volume 88.4 80.0-100.0 fL Mean Corpuscular Hemoglobin 28.4 28.0-32.0 pg Mean Corpuscular Hemoglobin Concent 32.2 32.0-36.0 g/dL Red Cell Distribution Width 17.7 H 11.8-14.3 % Platelet Count 196 140-450 10^3/uL Mean Platelet Volume 9.3 6.9-10.8 fL Neutrophils (%) (Auto) 57.2 37.0-80.0 % Lymphocytes (%) (Auto) 28.2 10.0-50.0 % Monocytes (%) (Auto) 9.2 0.0-12.0 % Eosinophils (%) (Auto) 4.3 0.0-7.0 % Basophils (%) (Auto) 1.1 0.0-2.0 % Neutrophils # (Auto) 4.5 1.6-8.6 10 ^3/uL Lymphocytes # (Auto) 2.2 0.4-5.4 10 ^3/uL Monocytes # (Auto) 0.7 0-1.3 10 ^3/uL Eosinophils # (Auto) 0.3 0-0.8 10 ^3/uL Basophils # (Auto) 0.1 0-0.2 10 ^3/uL Nucleated Red Blood Cells 0.1 % Hemoglobin A1c 6.2 H <5.7 % A1C Troponin I High Sensitivity 55 *H </=54 ng/L Test 10/08/24 20:52 10/08/24 20:15 10/08/24 17:02 Range/Units Blood Gas Specimen Type Arterial Blood Gas Sample Site Right radial Blood Gas Patient Temperature 37.0 Arterial Blood Date Drawn [id number] Arterial Blood pH 7.362 7.350-7.450 Arterial Blood Partial Pressure CO2 40.6 35.0-48.0 mmHg Arterial Blood Partial Pressure O2 108.3 H 83.0-108.0 mmHg Arterial Blood HCO3 22.5 21.0-28.0 mmol/L Arterial Blood Oxygen Saturation 97.9 94.0-98.0 % Arterial Blood Base Excess -2.7 L -2.0-3.0 mmol/L Arterial Blood Oxyhemoglobin 96.8 94.0-98.0 % Arterial Blood Carboxyhemoglobin 0.7 0.5-1.5 % Arterial Blood Methemoglobin 0.4 0.0-1.5 % Kody Test Yes Blood Gas Total Hemoglobin 11.80 L 13.5-17.5 g/dL Blood Gas Liter Flow 2.00 Blood Gas Modality Nasal cannula FiO2 % 28.0 Urine Color Colorless Yellow Urine Clarity Clear Clear Urine pH 6.0 5.0-9.0 Urine Specific Wilson 1.010 1.001-1.035 Urine Protein 2+ H Negative Urine Ketones Negative Negative Urine Blood 1+ H Negative /uL Urine Nitrite Negative Negative Urine Bilirubin Negative Negative Urine Urobilinogen Normal Negative mg/dL Urine Leukocyte Esterase Negative Negative /uL Urine RBC 7 0 - 3 /hpf Urine Microscopic WBC 1 0-3 /HPF Urine Squamous Epithelial Cells None seen <5 /hpf Urine Bacteria None seen None Seen /hpf Urine Glucose 2+ H Normal mg/dL D-Dimer, Quantitative 3.85 H 0.0-0.49 mg/L FEU Sodium Level 139 136-145 mmol/L Potassium Level 5.2 H 3.5-5.1 mmol/L Chloride Level 108 H 98-107 mmol/L Carbon Dioxide Level 22 20-31 mmol/L Anion Gap 9 5-15 Blood Urea Nitrogen 52 H 9-23 mg/dL Creatinine 3.51 H 0.700-1.30 mg/dL Glomerular Filtration Rate Calc 17 >90 mL/min BUN/Creatinine Ratio 14.8 10.0-20.0 Serum Glucose 256 H 74-106 mg/dL Lactic Acid Level 1.1 0.4-2.0 mmol/L Calcium Level 8.9 8.7-10.4 mg/dL Magnesium Level 1.6 1.6-2.6 mg/dL Total Bilirubin 0.3 0.2-1.0 mg/dL Aspartate Amino Transferase (AST) 25 13-40 U/L Alanine Aminotransferase (ALT) 28 7-40 U/L Alkaline Phosphatase 94 46-116 U/L B-Type Natriuretic Peptide 311.28 0-100 pg/mL Total Protein 6.2 5.7-8.2 g/dL Albumin 3.7 3.2-4.8 g/dL Assessment Rule out structural heart disease Severe coronary artery disease status post quintuple bypass CABG in 2023 (on Plavix) Hypertensive urgency, resolved Dyslipidemia Rule out pulmonary embolism COPD Lung cancer status post right lower lobe lobectomy Sleep apnea History bladder cancer status post bladder tumor resection Chronic kidney disease Insulin-dependent type 2 diabetes mellitus Peripheral neuropathy History of TIA Previous heavy tobacco use Morbid obesity Plan/Recommendation We will continue with the following plan/recommendations (Dr. Phillips): * Transthoracic echocardiogram to evaluate cardiac function * Aggressive diuresis as tolerated per Nephrology * Strict intake and output, daily weights, maintain fluid restriction * Continue single antiplatelet therapy and lipid-lowering agent * Avoid nephrotoxic agents * Close Cardiac surveillance Patient seen and examined at bedside with . Elevated troponin level likely in the setting of fluid volume overload. We will proceed with medical management at this time. Thank you for allowing us to care for this patient. Please call with any questions or concerns. Critical care time spent: 44 minutes This medical document was created using an electronic medical record system with voice recognition software and computerized dictation system. Although this document has been carefully reviewed, there might still be some phonetic and typographical errors. Occasional wrong-word or ``sound-alike substitutions may have occurred due to the inherent limitations of voice recognition software. These areas are purely typographical due to imperfections of the software programs and do not reflect any compromise in the patient's medical care. Please read the chart carefully and recognize, using context, where these substitutions have occurred. Plan discussed with: Patient, Spouse NYHA Physical activity limitations: NA Date of Service: Oct 09, 2024 Billing Provider: JOVANA ACE Cardiology Common Codes: 17532-[id number] INP/OBS CARE (High) Cardiology Consultation Codes: [id number] CONSULT <45MIN JOVANA ACE Oct 09, 2024 14:40
[2024-10-09 16:18] LABS: Triglycerides 142 mg/dL (< 150)
[2024-10-09 16:19] LABS: LDL Cholesterol 67 mg/dL (< 100)
[2024-10-09 16:20] LABS: Cholesterol 125 mg/dL (< 200); HDL Cholesterol 37 mg/dL (40-59)
[2024-10-09 16:24] LABS: INR 1.08 (0.9-1.15); Prothrombin Time 11.4 sec (9.3-11.8)
[2024-10-09 16:27] LABS: Partial Thromboplastin Time 73.5 SEC (24.5-34.5)
[2024-10-09 17:42] LABS: Potassium 4.9 mmol/L (3.5-5.1); Sodium 139 mmol/L (136-145)
[2024-10-09 17:43] LABS: Anion Gap 8 (5-15); Calcium 8.8 mg/dL (8.7-10.4); Carbon Dioxide 23 mmol/L (20-31)
[2024-10-09 17:48] LABS: BUN/Creatinine Ratio 15.4 (10.0-20.0); Blood Urea Nitrogen 54 mg/dL (9-23); Chloride 108 mmol/L (98-107); Glucose 151 mg/dL (74-106)
[2024-10-09] MEDS: ALBUTEROL SULF 2.5 MG/0.5ML(0.5%) NEB SOLN NEB PRN (17:59)
--- NOTE | 2024-10-09 19:53 | DVHINCON2 ---
Date Seen: Oct 09, 2024 Referring Physician MD Baldo Reason for Consultation CHF exacerbation, history of CABG History of Present Illness This is a 78-year-old male with a past medical history includes severe coronary artery disease status post quintuple bypass CABG (on Plavix), hypertension, dy slipidemia, COPD, lung cancer status post right lower lobe lobectomy, sleep apnea, bladder cancer status post cystoscopy and transurethral resection of bladder tumor, chronic kidney disease, insulin-dependent type 2 diabetes mellitus, peripheral neuropathy, osteoarthritis, TIA, previous tobacco use, and morbid obesity who presents to the emergency room with a complaint of worsening shortness of breath that began on the day of admission. Patient reports that he was at his 's appointment at [facility] when staff noticed he was having labored breathing. Patient was found hypoxic when they assessed his vital signs. EMS was called and the patient was brought to this facility for further evaluation. Cardiology has been consulted at this time for CHF exacerbation. Initial twelve lead electrocardiogram reveals sinus tachycardia with left bundle branch block (unable to verify if this is new onset given patient has no previous visits to this facility). Initial troponin level of 45ng/L with flat trend thereafter. Chest x-ray showed pulmonary edema. The patient denies any chest pain. The patient reports following up with a store custodian in the outpatient setting within the [facility]. Family History: Patient reports no known family medical history. Allergies: Coded Allergies: Ibuprofen (Verified Allergy, Intermediate, 10/08/24) Home Meds Reported Medications Clopidogrel Bisulfate (Plavix) 75 Mg Tab, 1 TAB PO DAILY, #90 TAB 1 Refill 10/08/24 Current Medications Current Medications Medications (Trade) Dose Ordered Sig/Savanna Route PRN Reason Start Time Stop Time Status Last Admin Heparin Sodium/ Dextrose 250 ml @ 16 mls/hr [id number] IV 10/08/24 18:30 10/09/24 12:05 Diagnostic Test (Pha) (Accu-Chek Comfort Curve T) 1 strip ACHS 10/08/24 22:00 10/09/24 11:30 Insulin Human Regular (InsuLIN R) AC SC 10/09/24 07:00 10/09/24 12:04 Insulin Human Regular (InsuLIN R) HS SC 10/08/24 22:00 10/08/24 22:33 Dextrose 50 ml UD PRN IV Blood Sugar LESS THAN 60 10/08/24 20:00 Lorazepam (Ativan Tablet) 0.5 mg Q6HP PRN PO ANXIETY 10/08/24 20:00 Docusate Sodium (Colace Capsule) 100 mg BIDPRN PRN PO FOR CONSTIPATION 10/08/24 20:00 Acetaminophen (Tylenol Tablet) 650 mg Q6HP PRN PO PAIN SCALE 1-3 OR TEMP>100.4 10/08/24 20:00 Ondansetron HCl (Zofran) 4 mg Q4HP PRN IV NAUSEA / VOMITING 10/08/24 20:00 Morphine Sulfate 1 mg Q4HPRN PRN IV SEVERE PAIN (7-10 PAIN SCALE) 10/08/24 20:00 Furosemide (Lasix Injection) 40 mg BIDD IV 10/09/24 06:00 Albuterol (Ventolin Medneb) 2.5 mg Q6HP PRN NEB SHORTNESS OF BREATH 10/08/24 20:00 Ceftriaxone Sodium 50 ml @ 100 mls/hr DAILY IV 10/08/24 20:00 10/09/24 10:23 Review of Systems Constitutional: No symptom reported Ears, Nose, & Throat: No symptom reported Eyes: No symptom reported Neurological: No symptoms reported Pulmonary/Respiratory: Shortness of breath Cardiovascular: No symptom reported Gastrointestinal: No symptom reported Genitourinary: No symptom reported Musculoskeletal: No symptom reported Skin: No symptom reported Psychiatric: No symptom reported Endocrine: No symptom reported Hematologic/Lymphatic: No symptom reported Vital Signs Vital Signs Date Time Temp Pulse Resp B/P (MAP) Pulse Ox O2 Delivery O2 Flow Rate FiO2 10/09/24 10:00 100 Nasal Cannula 2.0 10/09/24 10:00 28 10/09/24 09:00 97.7 114 20 108/74 (85) 97.7 Physical Exam GENERAL: Alert and oriented x 3. No acute distress. Morbidly obese. EYES: PERRL, EOMI. Anicteric. HENT: Moist mucous membranes. LUNGS: Coarse breath sounds. CARDIOVASCULAR: Regular rate and rhythm. ABDOMEN: Soft, nontender and nondistended. EXTREMITIES: 1+ pitting edema. NEUROLOGIC: No focal neurological deficits. SKIN: Warm, dry. Labs/Diagnostic Data Labs Test 10/09/24 11:50 10/09/24 10:27 10/09/24 02:22 10/08/24 20:58 Range/Units POC Glucose 141 H 70-106 mg/dl Prothrombin Time 11.4 9.3-11.8 sec Prothrombin Time INR 1.08 0.9-1.15 Activated Partial Thromboplast Time 64.5 H 24.5-34.5 SEC White Blood Count 7.8 4.4-10.8 10^3/uL Red Blood Count 3.86 L 4.5-5.90 10^6/uL Hemoglobin 11.0 L 13.5-17.5 g/dL Hematocrit 34.1 L 41.0-53.0 % Mean Corpuscular Volume 88.4 80.0-100.0 fL Mean Corpuscular Hemoglobin 28.4 28.0-32.0 pg Mean Corpuscular Hemoglobin Concent 32.2 32.0-36.0 g/dL Red Cell Distribution Width 17.7 H 11.8-14.3 % Platelet Count 196 140-450 10^3/uL Mean Platelet Volume 9.3 6.9-10.8 fL Neutrophils (%) (Auto) 57.2 37.0-80.0 % Lymphocytes (%) (Auto) 28.2 10.0-50.0 % Monocytes (%) (Auto) 9.2 0.0-12.0 % Eosinophils (%) (Auto) 4.3 0.0-7.0 % Basophils (%) (Auto) 1.1 0.0-2.0 % Neutrophils # (Auto) 4.5 1.6-8.6 10 ^3/uL Lymphocytes # (Auto) 2.2 0.4-5.4 10 ^3/uL Monocytes # (Auto) 0.7 0-1.3 10 ^3/uL Eosinophils # (Auto) 0.3 0-0.8 10 ^3/uL Basophils # (Auto) 0.1 0-0.2 10 ^3/uL Nucleated Red Blood Cells 0.1 % Hemoglobin A1c 6.2 H <5.7 % A1C Troponin I High Sensitivity 55 *H </=54 ng/L Test 10/08/24 20:52 10/08/24 20:15 10/08/24 17:02 Range/Units Blood Gas Specimen Type Arterial Blood Gas Sample Site Right radial Blood Gas Patient Temperature 37.0 Arterial Blood Date Drawn [id number] Arterial Blood pH 7.362 7.350-7.450 Arterial Blood Partial Pressure CO2 40.6 35.0-48.0 mmHg Arterial Blood Partial Pressure O2 108.3 H 83.0-108.0 mmHg Arterial Blood HCO3 22.5 21.0-28.0 mmol/L Arterial Blood Oxygen Saturation 97.9 94.0-98.0 % Arterial Blood Base Excess -2.7 L -2.0-3.0 mmol/L Arterial Blood Oxyhemoglobin 96.8 94.0-98.0 % Arterial Blood Carboxyhemoglobin 0.7 0.5-1.5 % Arterial Blood Methemoglobin 0.4 0.0-1.5 % Kody Test Yes Blood Gas Total Hemoglobin 11.80 L 13.5-17.5 g/dL Blood Gas Liter Flow 2.00 Blood Gas Modality Nasal cannula FiO2 % 28.0 Urine Color Colorless Yellow Urine Clarity Clear Clear Urine pH 6.0 5.0-9.0 Urine Specific [place] 1.010 1.001-1.035 Urine Protein 2+ H Negative Urine Ketones Negative Negative Urine Blood 1+ H Negative /uL Urine Nitrite Negative Negative Urine Bilirubin Negative Negative Urine Urobilinogen Normal Negative mg/dL Urine Leukocyte Esterase Negative Negative /uL Urine RBC 7 0 - 3 /hpf Urine Microscopic WBC 1 0-3 /HPF Urine Squamous Epithelial Cells None seen <5 /hpf Urine Bacteria None seen None Seen /hpf Urine Glucose 2+ H Normal mg/dL D-Dimer, Quantitative 3.85 H 0.0-0.49 mg/L FEU Sodium Level 139 136-145 mmol/L Potassium Level 5.2 H 3.5-5.1 mmol/L Chloride Level 108 H 98-107 mmol/L Carbon Dioxide Level 22 20-31 mmol/L Anion Gap 9 5-15 Blood Urea Nitrogen 52 H 9-23 mg/dL Creatinine 3.51 H 0.700-1.30 mg/dL Glomerular Filtration Rate Calc 17 >90 mL/min BUN/Creatinine Ratio 14.8 10.0-20.0 Serum Glucose 256 H 74-106 mg/dL Lactic Acid Level 1.1 0.4-2.0 mmol/L Calcium Level 8.9 8.7-10.4 mg/dL Magnesium Level 1.6 1.6-2.6 mg/dL Total Bilirubin 0.3 0.2-1.0 mg/dL Aspartate Amino Transferase (AST) 25 13-40 U/L Alanine Aminotransferase (ALT) 28 7-40 U/L Alkaline Phosphatase 94 46-116 U/L B-Type Natriuretic Peptide 311.28 0-100 pg/mL Total Protein 6.2 5.7-8.2 g/dL Albumin 3.7 3.2-4.8 g/dL Assessment Rule out structural heart disease Severe coronary artery disease status post quintuple bypass CABG in 2023 (on Pl avix) Hypertensive urgency, resolved Dyslipidemia Rule out pulmonary embolism COPD Lung cancer status post right lower lobe lobectomy Sleep apnea History bladder cancer status post bladder tumor resection Chronic kidney disease Insulin-dependent type 2 diabetes mellitus Peripheral neuropathy History of TIA Previous heavy tobacco use Morbid obesity Plan/Recommendation I agree with your ongoing assessment and care of plan. Patient has been seen by Oralia Ritter NP on my behalf, her and I discussed the plan with the patient. Transthoracic echocardiogram to evaluate cardiac function Aggressive diuresis as tolerated per Nephrology Continue single antiplatelet therapy and lipid-lowering agent Close Cardiac surveillance Additional plan as per the hospital course. Plan discussed with: Patient NYHA Physical activity limitations: NA Date of Service: Oct 09, 2024 Billing Provider: TINY COOPER MD Cardiology Common Codes: 92252-[id number] INP/OBS CARE (High) Cardiology Consultation Codes: [id number] CONSULT <45MIN TINY COOPER MD Oct 09, 2024 15:23
--- NOTE | 2024-10-09 20:43 | DVHSR ---
APPROVED REPORT EXAM: Two-dimensional and M-mode echocardiogram with Doppler and color Doppler. Blood Pressure: 108/74 mmHg INDICATION Evaluate cardiac function history of CHF Surgery/Intervention CABG: RISK FACTORS Obesity: Height: 5'6", Weight: 204 DIMENSIONS LVDd5.2 (3.8-5.7cm)LA (2D)4.1 (1.9-4.0cm)Aortic Root3.8 (2.0-3.7cm) LVDs4.8 (2.5-4.0cm)LA (MM) (1.9-4.0cm)Aortic Cusp Exc1.1 (1.5-2.0cm) EF (%) 25.0 (55-70%)Rt. Atrium3.7 (1.9-4.0cm)Asc. Aorta cm IVSd1.1 (0.7-1.1cm)RV (D) (1.8-2.4cm) PWd1.0 (0.7-1.1cm) Mitral Valve MitralMitral Stenosis E wave1.04m/sMV Mean GR.mmHg A wave0.46m/sMV Peak GR.mmHg E/A ratio2.32D MVAcm2 DECEL [id number] 1/2 Timems Aortic Valve Aortic ValveAortic Stenosis V10.62m/Brooke Mean GR.8mmHg V21.79m/Brooke Peak GR.13mmHg LVOT Diameter2.0 (1.8-2.4cm)Doppler AVA1.09cm2 Pulmonic Valve V20.79m/s Tricuspid Valve TR Velocity2.72m/s [id number] Other Information Quality : LimitedRhythm : Technically limited study due to body habitus and CABG. Conclusion 1. MODERATE DEGREE LVH AND MODERATE DEGREE LV DIASTOLIC DYSFUNCTION 2. GLOBAL LV HYPOKINESIS 3. LV EF IS ONLY 25% 4. SYSTOLIC AND DIASTOLIC LV DYSFUNCTION 5. HEAVILY CALCIFIED AORTIC LEAFLETS WITH DECREASED EXCURSION 6. CRITICAL AORTIC STENOSIS AORTIC VALVE AREA IS ONLY 1.0 CM SQUARE 7. MILD PULMONARY HYPERTENSION 8. NO EFFUSION
[2024-10-10] VITALS (12 sets, daily range): BP systolic 97–133; BP diastolic 56–90; PULSE 87–120; RESP 18–20; TEMP 97.8–98.6; O2SAT 88–100
[2024-10-10] MEDS: METOPROLOL TARTRATE 1MG/1ML-5ML VIAL IV PRN (03:21)
[2024-10-10] MEDS: CLOPIDOGREL BISULFATE 75 MG TAB PO SCH (08:18)
[2024-10-10 08:49] LABS: Basophils # (auto) 0.1 10 ^3/uL (0-0.2); Basophils % (auto) 0.7 % (0.0-2.0); Chloride 105 mmol/L (98-107); Eosinophils # (auto) 0.3 10 ^3/uL (0-0.8); Eosinophils % (auto) 4.1 % (0.0-7.0); Hemoglobin 10.8 g/dL (13.5-17.5); Lymphocytes # (auto) 1.7 10 ^3/uL (0.4-5.4); Lymphocytes % (auto) 23.3 % (10.0-50.0); Mean Corpuscular Hemoglobin 28.6 pg (28.0-32.0); Mean Corpuscular Hgb Conc. 32.7 g/dL (32.0-36.0); Mean Corpuscular Volume 87.5 fL (80.0-100.0); Monocytes # (auto) 0.6 10 ^3/uL (0-1.3); Monocytes % (auto) 7.8 % (0.0-12.0); Neutrophils # (auto) 4.6 10 ^3/uL (1.6-8.6); Neutrophils % (auto) 64.1 % (37.0-80.0); Platelet Count (auto) 181 10^3/uL (140-450); Potassium 4.6 mmol/L (3.5-5.1); Red Blood Cells 3.78 10^6/uL (4.5-5.90); Sodium 142 mmol/L (136-145); White Blood Cell 7.2 10^3/uL (4.4-10.8)
[2024-10-10 08:50] LABS: Anion Gap 12 (5-15); Calcium 9.3 mg/dL (8.7-10.4); Carbon Dioxide 25 mmol/L (20-31)
[2024-10-10 08:55] LABS: BUN/Creatinine Ratio 15.5 (10.0-20.0); Glucose 99 mg/dL (74-106)
[2024-10-10 08:56] LABS: Blood Urea Nitrogen 55 mg/dL (9-23)
[2024-10-10 08:59] LABS: INR 1.04 (0.9-1.15); Partial Thromboplastin Time 30.3 SEC (24.5-34.5)
[2024-10-10] MEDS: HEPARIN DRIP/D5W 100UNITS/ML 250 ML IV SCH ×2 (09:30→17:59)
--- NOTE | 2024-10-10 10:16 | DVHINCON2 ---
Date of service: Oct 09, [address] koko deutsch Reason for Consultation resp failure History of Present Illness HPI pt is a 78 yo male, h/o copd, CKD, CAD, s/p CABG in 2023. Pt had lung cancer and underwent resection right in 2023. No home 02. presented with worsening teo rtness of breath and generalized weakness. Pt came in to ER desaturating and placed on suppl 02. CXR shows right pl effusion. Home Meds Reported Medications Clopidogrel Bisulfate (Plavix) 75 Mg Tab, 1 TAB PO DAILY, #90 TAB 1 Refill 10/08/24 Past Medical History Cardiac: CAD, HTN Pulmonary: COPD Central Nervous System: No pertinent Hx GI: No pertinent Hx Hemotology/Oncology: No pertinent Hx Hepatobiliary: No pertinent Hx Psychiatric: No pertinent Hx Musculoskeletal: No pertinent Hx Rheumotologic: No pertinent Hx Infectious Disease: No peritnent Hx ENT: No pertinent Hx Renal/: No pertinent Hx Endocrine: No pertinent Hx Dermatology: No pertinent Hx Past Surgical History: CABG Family History: No pertinent Hx Patient Family History: Patient reports no known family medical history. Review of Systems Constitutional: Malaise, Weakness Ears, Nose, & Throat: No symptom reported Eyes: No symptom reported Pulmonary/Respiratory: Dyspnea, Cough Cardiovascular: No symptom reported Gastrointestinal: No symptom reported Genitourinary: No symptom reported Musculoskeletal: No symptom reported Skin: No symptom reported Endocrine: No symptom reported Hemotologic/Lymphatic: No symptom reported H&P Exam Vital Signs Vital Signs Date Time Temp Pulse Resp B/P (MAP) Pulse Ox O2 Delivery O2 Flow Rate FiO2 10/10/24 09:00 98.3 87 20 120/81 (94) 96 98.3 10/10/24 07:11 Nasal Cannula 2.0 10/10/24 07:11 28 General Appeara: Well developed, Well nourished, Obese Head Exam: Normal inspection Neck Exam: Normal inspection Eye Exam: bilateral eye PERRL, bilateral eye EOMI Ear Exam: bilateral ear Auricle normal, bilateral ear Canal normal, bilateral ear TM normal Nasal Exam: Normal inspection Mouth: Normal Inspection Pulmonary/Respiratory: Decreased breath sounds Cardiovascular/Chest: Normal inspection Peripheral Pulses: 4+ carotid (R), 4+ carotid (L) Abdominal Exam: Normal bowel sounds Rectal Exam: Deferred Labs/Xrays Labs Test 10/10/24 07:22 10/10/24 05:30 10/09/24 15:46 10/09/24 02:22 Range/Units White Blood Count 7.2 4.4-10.8 10^3/uL Red Blood Count 3.78 L 4.5-5.90 10^6/uL Hemoglobin 10.8 L 13.5-17.5 g/dL Hematocrit 33.0 L 41.0-53.0 % Mean Corpuscular Volume 87.5 80.0-100.0 fL Mean Corpuscular Hemoglobin 28.6 28.0-32.0 pg Mean Corpuscular Hemoglobin Concent 32.7 32.0-36.0 g/dL Red Cell Distribution Width 18.0 H 11.8-14.3 % Platelet Count 181 140-450 10^3/uL Mean Platelet Volume 10.1 6.9-10.8 fL Neutrophils (%) (Auto) 64.1 37.0-80.0 % Lymphocytes (%) (Auto) 23.3 10.0-50.0 % Monocytes (%) (Auto) 7.8 0.0-12.0 % Eosinophils (%) (Auto) 4.1 0.0-7.0 % Basophils (%) (Auto) 0.7 0.0-2.0 % Neutrophils # (Auto) 4.6 1.6-8.6 10 ^3/uL Lymphocytes # (Auto) 1.7 0.4-5.4 10 ^3/uL Monocytes # (Auto) 0.6 0-1.3 10 ^3/uL Eosinophils # (Auto) 0.3 0-0.8 10 ^3/uL Basophils # (Auto) 0.1 0-0.2 10 ^3/uL Nucleated Red Blood Cells 0.0 % Prothrombin Time 11.0 9.3-11.8 sec Prothrombin Time INR 1.04 0.9-1.15 Activated Partial Thromboplast Time 30.3 24.5-34.5 SEC Sodium Level 142 136-145 mmol/L Potassium Level 4.6 3.5-5.1 mmol/L Chloride Level 105 98-107 mmol/L Carbon Dioxide Level 25 20-31 mmol/L Anion Gap 12 5-15 Blood Urea Nitrogen 55 H 9-23 mg/dL Creatinine 3.55 H 0.700-1.30 mg/dL Glomerular Filtration Rate Calc 17 >90 mL/min BUN/Creatinine Ratio 15.5 10.0-20.0 Serum Glucose 99 74-106 mg/dL Calcium Level 9.3 8.7-10.4 mg/dL POC Glucose 100 70-106 mg/dl Triglycerides Level 142 < 150 mg/dL Cholesterol Level 125 < 200 mg/dL LDL Cholesterol 67 < 100 mg/dL HDL Cholesterol 37 L 40-59 mg/dL Thyroid Stimulating Hormone (TSH) 0.61 0.55-4.78 uIU/mL Hemoglobin A1c 6.2 H <5.7 % A1C Test 10/08/24 20:58 10/08/24 20:52 10/08/24 20:15 10/08/24 17:02 Range/Units Troponin I High Sensitivity 55 *H </=54 ng/L Blood Gas Specimen Type Arterial Blood Gas Sample Site Right radial Blood Gas Patient Temperature 37.0 Arterial Blood Date Drawn [id number] Arterial Blood pH 7.362 7.350-7.450 Arterial Blood Partial Pressure CO2 40.6 35.0-48.0 mmHg Arterial Blood Partial Pressure O2 108.3 H 83.0-108.0 mmHg Arterial Blood HCO3 22.5 21.0-28.0 mmol/L Arterial Blood Oxygen Saturation 97.9 94.0-98.0 % Arterial Blood Base Excess -2.7 L -2.0-3.0 mmol/L Arterial Blood Oxyhemoglobin 96.8 94.0-98.0 % Arterial Blood Carboxyhemoglobin 0.7 0.5-1.5 % Arterial Blood Methemoglobin 0.4 0.0-1.5 % Kody Test Yes Blood Gas Total Hemoglobin 11.80 L 13.5-17.5 g/dL Blood Gas Liter Flow 2.00 Blood Gas Modality Nasal cannula FiO2 % 28.0 Urine Color Colorless Yellow Urine Clarity Clear Clear Urine pH 6.0 5.0-9.0 Urine Specific [place] 1.010 1.001-1.035 Urine Protein 2+ H Negative Urine Ketones Negative Negative Urine Blood 1+ H Negative /uL Urine Nitrite Negative Negative Urine Bilirubin Negative Negative Urine Urobilinogen Normal Negative mg/dL Urine Leukocyte Esterase Negative Negative /uL Urine RBC 7 0 - 3 /hpf Urine Microscopic WBC 1 0-3 /HPF Urine Squamous Epithelial Cells None seen <5 /hpf Urine Bacteria None seen None Seen /hpf Urine Glucose 2+ H Normal mg/dL D-Dimer, Quantitative 3.85 H 0.0-0.49 mg/L FEU Lactic Acid Level 1.1 0.4-2.0 mmol/L Magnesium Level 1.6 1.6-2.6 mg/dL Total Bilirubin 0.3 0.2-1.0 mg/dL Aspartate Amino Transferase (AST) 25 13-40 U/L Alanine Aminotransferase (ALT) 28 7-40 U/L Alkaline Phosphatase 94 46-116 U/L B-Type Natriuretic Peptide 311.28 0-100 pg/mL Total Protein 6.2 5.7-8.2 g/dL Albumin 3.7 3.2-4.8 g/dL Assessment/Plan Plan acute hypoxemic resp failure h/o lung cancer s/p resection in [address] effusion COPD management plan pt on iv heparin drip US legs ne've VQ pending to r/o PE afterward will proceed to throracentesis cont COPD management supportive care Plan discussed with: Patient FRANCESCO DOTSON MD Oct 10, 2024 10:16
--- NOTE | 2024-10-10 10:17 | CONS ---
Pharmacy Clinical Information: BOLUS 5000 UNITS HEPARIN IV AND INCREASE HEPARIN DRIP RATE TO 1900 UNITS/HR = 19 ML/HR PER APTT OF 30.3 (SUBTHERAPEUTIC) NEXT APTT DRAW SCHEDULED FOR 1600 PER RX PROTOCOL SITA HORTON PHARMACIST Oct 10, 2024 10:17
--- NOTE | 2024-10-10 10:18 | DVHPN2 ---
Progress Note - Dictate Date Seen: Oct 10, 2024 Medical Necessity Reason Pt with a Central, PICC or Fol: No vital signs Vital Sign Date Time Temp Pulse Resp B/P (MAP) Pulse Ox O2 Delivery O2 Flow Rate FiO2 10/10/24 09:00 98.3 87 20 120/81 (94) 96 98.3 10/10/24 07:11 Nasal Cannula 2.0 10/10/24 07:11 28 Total Intake and Output 10/09/24 10/09/24 10/10/24 15:00 23:00 07:00 Intake Total 50 ml 740 ml 960 ml Output Total 425 ml 650 ml Balance 50 ml 315 ml 310 ml medications Current Medications Medications Dose Ordered Sig/[place] Route Start Time Stop Time Status Last Admin Dose Admin Diagnostic Test (Pha) 1 strip ACHS 10/08/24 22:00 10/10/24 06:39 1 STRIP Insulin Human Regular AC SC 10/09/24 07:00 10/09/24 17:00 2 UNITS Insulin Human Regular HS SC 10/08/24 22:00 10/09/24 21:04 2 UNITS Dextrose 50 ml UD PRN IV 10/08/24 20:00 Lorazepam 0.5 mg Q6HP PRN PO 10/08/24 20:00 Docusate Sodium 100 mg BIDPRN PRN PO 10/08/24 20:00 Acetaminophen 650 mg Q6HP PRN PO 10/08/24 20:00 Ondansetron HCl 4 mg Q4HP PRN IV 10/08/24 20:00 Morphine Sulfate 1 mg Q4HPRN PRN IV 10/08/24 20:00 Furosemide 40 mg BIDD IV 10/09/24 06:00 10/09/24 16:55 40 MG Albuterol 2.5 mg Q6HP PRN NEB 10/08/24 20:00 10/10/24 07:01 2.5 MG Ceftriaxone Sodium 50 ml @ 100 mls/hr DAILY IV 10/08/24 20:00 10/10/24 08:19 100 MLS/HR Clopidogrel Bisulfate 75 mg DAILY PO 10/10/24 10:00 10/10/24 08:18 75 MG Metoprolol Tartrate 2.5 mg Q4HP PRN IV 10/10/24 03:15 10/10/24 08:12 2.5 MG Heparin Sodium/ Dextrose 250 ml @ 19 mls/hr [id number] IV 10/10/24 09:30 laboratory and microbiology Laboratory Tests 10/10/24 07:22 Test 10/10/24 07:22 Range/Units Serum Glucose 99 74-106 mg/dL Assessment/Plan acute hypoxemic resp failure h/o lung cancer s/p resection in [address] effusion COPD management plan on 2lpm 02 vs stable iv heparin drip US legs ne've VQ pending to r/o PE afterward will proceed to throracentesis abx bronchodilators supportive care family updated Plan discussed with: Patient, Son FRANCESCO DOTSON MD Oct 10, 2024 10:18
[2024-10-10] MEDS: HEPARIN SODIUM (PORCINE) 5000 UNITS/ML 1ML VIAL IV ONE (10:42)
--- NOTE | 2024-10-10 11:09 | ECG ---
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
--- NOTE | 2024-10-10 12:09 | DVHINCON2 ---
Date of service: Oct 10, 2024 Reason for Consultation Acute kidney injury History of Present Illness 78-year-old male past medical history of hypertension, diabetes, BPH, advanced coronary disease with multivessel CABG in 2023 and chronic kidney disease stage 4 his nephrologists is in [place]. Patient presents to the hospital after near syncopal episode after exertion. He was admitted with a diagnosis of decompensated heart failure nephrology consulted due to elevated creatinine level. Past Surgical History Coronary artery bypass Allergies: Coded Allergies: Ibuprofen (Verified Allergy, Intermediate, 10/08/24) Home Meds Reported Medications Clopidogrel Bisulfate (Plavix) 75 Mg Tab, 1 TAB PO DAILY, #90 TAB 1 Refill 10/08/24 Current Medications Current Medications Medications (Trade) Dose Ordered Sig/[place] Route PRN Reason Start Time Stop Time Status Last Admin Clopidogrel Bisulfate (Plavix) 75 mg DAILY PO 10/10/24 10:00 10/10/24 08:18 Metoprolol Tartrate (Lopressor) 2.5 mg Q4HP PRN IV HR>100 10/10/24 03:15 10/10/24 08:12 Heparin Sodium/ Dextrose 250 ml @ 19 mls/hr [id number] IV 10/10/24 09:30 10/10/24 09:30 Family History: Patient reports no known family medical history. Review of Systems Shortness of breath and dyspnea at rest H&P Exam Vital Signs/I&O Vital Sign Date Time Temp Pulse Resp B/P (MAP) Pulse Ox O2 Delivery O2 Flow Rate FiO2 10/10/24 09:12 114 124/68 10/10/24 09:00 98.3 20 96 98.3 10/10/24 07:11 Nasal Cannula 2.0 10/10/24 07:11 28 Intake and Output 10/09/24 10/10/24 19:00 07:00 Intake Total 550 ml 1200 ml Output Total 1075 ml Balance 550 ml 125 ml Intake Oral 500 ml 1200 ml IV Total 50 ml Output Urine Total 1075 ml # Voids 3 Physical Exam Elderly male Moderate distress due to shortness of breath Positive crackles rales Regular rate No pitting edema Large abdomen distended no fluid wave Labs/Diagnostic Data Labs/Diagnostic Data Laboratory Tests Test 10/10/24 11:33 10/10/24 07:22 10/10/24 05:30 10/09/24 20:43 Range/Units POC Glucose 158 H 100 151 H 70-106 mg/dl White Blood Count 7.2 4.4-10.8 10^3/uL Red Blood Count 3.78 L 4.5-5.90 10^6/uL Hemoglobin 10.8 L 13.5-17.5 g/dL Hematocrit 33.0 L 41.0-53.0 % Mean Corpuscular Volume 87.5 80.0-100.0 fL Mean Corpuscular Hemoglobin 28.6 28.0-32.0 pg Mean Corpuscular Hemoglobin Concent 32.7 32.0-36.0 g/dL Red Cell Distribution Width 18.0 H 11.8-14.3 % Platelet Count 181 140-450 10^3/uL Mean Platelet Volume 10.1 6.9-10.8 fL Neutrophils (%) (Auto) 64.1 37.0-80.0 % Lymphocytes (%) (Auto) 23.3 10.0-50.0 % Monocytes (%) (Auto) 7.8 0.0-12.0 % Eosinophils (%) (Auto) 4.1 0.0-7.0 % Basophils (%) (Auto) 0.7 0.0-2.0 % Neutrophils # (Auto) 4.6 1.6-8.6 10 ^3/uL Lymphocytes # (Auto) 1.7 0.4-5.4 10 ^3/uL Monocytes # (Auto) 0.6 0-1.3 10 ^3/uL Eosinophils # (Auto) 0.3 0-0.8 10 ^3/uL Basophils # (Auto) 0.1 0-0.2 10 ^3/uL Nucleated Red Blood Cells 0.0 % Prothrombin Time 11.0 9.3-11.8 sec Prothrombin Time INR 1.04 0.9-1.15 Activated Partial Thromboplast Time 30.3 24.5-34.5 SEC Sodium Level 142 136-145 mmol/L Potassium Level 4.6 3.5-5.1 mmol/L Chloride Level 105 98-107 mmol/L Carbon Dioxide Level 25 20-31 mmol/L Anion Gap 12 5-15 Blood Urea Nitrogen 55 H 9-23 mg/dL Creatinine 3.55 H 0.700-1.30 mg/dL Glomerular Filtration Rate Calc 17 >90 mL/min BUN/Creatinine Ratio 15.5 10.0-20.0 Serum Glucose 99 74-106 mg/dL Calcium Level 9.3 8.7-10.4 mg/dL Test 10/09/24 16:47 10/09/24 15:46 10/09/24 11:50 10/09/24 10:27 Range/Units POC Glucose 135 H 141 H 70-106 mg/dl Prothrombin Time 11.4 11.4 9.3-11.8 sec Prothrombin Time INR 1.08 1.08 0.9-1.15 Activated Partial Thromboplast Time 73.5 *H 64.5 H 24.5-34.5 SEC Sodium Level 139 136-145 mmol/L Potassium Level 4.9 3.5-5.1 mmol/L Chloride Level 108 H 98-107 mmol/L Carbon Dioxide Level 23 20-31 mmol/L Anion Gap 8 5-15 Blood Urea Nitrogen 54 H 9-23 mg/dL Creatinine 3.51 H 0.700-1.30 mg/dL Glomerular Filtration Rate Calc 17 >90 mL/min BUN/Creatinine Ratio 15.4 10.0-20.0 Serum Glucose 151 #H 74-106 mg/dL Calcium Level 8.8 8.7-10.4 mg/dL Triglycerides Level 142 < 150 mg/dL Cholesterol Level 125 < 200 mg/dL LDL Cholesterol 67 < 100 mg/dL HDL Cholesterol 37 L 40-59 mg/dL Thyroid Stimulating Hormone (TSH) 0.61 0.55-4.78 uIU/mL Test 10/09/24 05:16 10/09/24 02:22 10/08/24 22:16 10/08/24 20:58 Range/Units POC Glucose 88 186 H 70-106 mg/dl White Blood Count 7.8 4.4-10.8 10^3/uL Red Blood Count 3.86 L 4.5-5.90 10^6/uL Hemoglobin 11.0 L 13.5-17.5 g/dL Hematocrit 34.1 L 41.0-53.0 % Mean Corpuscular Volume 88.4 80.0-100.0 fL Mean Corpuscular Hemoglobin 28.4 28.0-32.0 pg Mean Corpuscular Hemoglobin Concent 32.2 32.0-36.0 g/dL Red Cell Distribution Width 17.7 H 11.8-14.3 % Platelet Count 196 140-450 10^3/uL Mean Platelet Volume 9.3 6.9-10.8 fL Neutrophils (%) (Auto) 57.2 37.0-80.0 % Lymphocytes (%) (Auto) 28.2 10.0-50.0 % Monocytes (%) (Auto) 9.2 0.0-12.0 % Eosinophils (%) (Auto) 4.3 0.0-7.0 % Basophils (%) (Auto) 1.1 0.0-2.0 % Neutrophils # (Auto) 4.5 1.6-8.6 10 ^3/uL Lymphocytes # (Auto) 2.2 0.4-5.4 10 ^3/uL Monocytes # (Auto) 0.7 0-1.3 10 ^3/uL Eosinophils # (Auto) 0.3 0-0.8 10 ^3/uL Basophils # (Auto) 0.1 0-0.2 10 ^3/uL Nucleated Red Blood Cells 0.1 % Prothrombin Time 11.3 9.3-11.8 sec Prothrombin Time INR 1.07 0.9-1.15 Activated Partial Thromboplast Time 59.5 H 24.5-34.5 SEC Hemoglobin A1c 6.2 H <5.7 % A1C Troponin I High Sensitivity 55 *H </=54 ng/L Test 10/08/24 20:52 10/08/24 20:15 10/08/24 18:07 10/08/24 17:02 Range/Units Blood Gas Specimen Type Arterial Blood Gas Sample Site Right radial Blood Gas Patient Temperature 37.0 Arterial Blood Date Drawn [id number] Arterial Blood pH 7.362 7.350-7.450 Arterial Blood Partial Pressure CO2 40.6 35.0-48.0 mmHg Arterial Blood Partial Pressure O2 108.3 H 83.0-108.0 mmHg Arterial Blood HCO3 22.5 21.0-28.0 mmol/L Arterial Blood Oxygen Saturation 97.9 94.0-98.0 % Arterial Blood Base Excess -2.7 L -2.0-3.0 mmol/L Arterial Blood Oxyhemoglobin 96.8 94.0-98.0 % Arterial Blood Carboxyhemoglobin 0.7 0.5-1.5 % Arterial Blood Methemoglobin 0.4 0.0-1.5 % Kody Test Yes Blood Gas Total Hemoglobin 11.80 L 13.5-17.5 g/dL Blood Gas Liter Flow 2.00 Blood Gas Modality Nasal cannula FiO2 % 28.0 Urine Color Colorless Yellow Urine Clarity Clear Clear Urine pH 6.0 5.0-9.0 Urine Specific [place] 1.010 1.001-1.035 Urine Protein 2+ H Negative Urine Ketones Negative Negative Urine Blood 1+ H Negative /uL Urine Nitrite Negative Negative Urine Bilirubin Negative Negative Urine Urobilinogen Normal Negative mg/dL Urine Leukocyte Esterase Negative Negative /uL Urine RBC 7 0 - 3 /hpf Urine Microscopic WBC 1 0-3 /HPF Urine Squamous Epithelial Cells None seen <5 /hpf Urine Bacteria None seen None Seen /hpf Urine Glucose 2+ H Normal mg/dL Troponin I High Sensitivity 49 45 </=54 ng/L White Blood Count 7.6 4.4-10.8 10^3/uL Red Blood Count 3.93 L 4.5-5.90 10^6/uL Hemoglobin 11.2 L 13.5-17.5 g/dL Hematocrit 35.0 L 41.0-53.0 % Mean Corpuscular Volume 89.2 80.0-100.0 fL Mean Corpuscular Hemoglobin 28.5 28.0-32.0 pg Mean Corpuscular Hemoglobin Concent 32.0 32.0-36.0 g/dL Red Cell Distribution Width 18.0 H 11.8-14.3 % Platelet Count 192 140-450 10^3/uL Mean Platelet Volume 9.7 6.9-10.8 fL Neutrophils (%) (Auto) 75.2 37.0-80.0 % Lymphocytes (%) (Auto) 15.6 10.0-50.0 % Monocytes (%) (Auto) 6.5 0.0-12.0 % Eosinophils (%) (Auto) 2.0 0.0-7.0 % Basophils (%) (Auto) 0.7 0.0-2.0 % Neutrophils # (Auto) 5.7 1.6-8.6 10 ^3/uL Lymphocytes # (Auto) 1.2 0.4-5.4 10 ^3/uL Monocytes # (Auto) 0.5 0-1.3 10 ^3/uL Eosinophils # (Auto) 0.2 0-0.8 10 ^3/uL Basophils # (Auto) 0.1 0-0.2 10 ^3/uL Nucleated Red Blood Cells 0.0 % Prothrombin Time 10.9 9.3-11.8 sec Prothrombin Time INR 1.03 0.9-1.15 Activated Partial Thromboplast Time 25.6 24.5-34.5 SEC D-Dimer, Quantitative 3.85 H 0.0-0.49 mg/L FEU Sodium Level 139 136-145 mmol/L Potassium Level 5.2 H 3.5-5.1 mmol/L Chloride Level 108 H 98-107 mmol/L Carbon Dioxide Level 22 20-31 mmol/L Anion Gap 9 5-15 Blood Urea Nitrogen 52 H 9-23 mg/dL Creatinine 3.51 H 0.700-1.30 mg/dL Glomerular Filtration Rate Calc 17 >90 mL/min BUN/Creatinine Ratio 14.8 10.0-20.0 Serum Glucose 256 H 74-106 mg/dL Lactic Acid Level 1.1 0.4-2.0 mmol/L Calcium Level 8.9 8.7-10.4 mg/dL Magnesium Level 1.6 1.6-2.6 mg/dL Total Bilirubin 0.3 0.2-1.0 mg/dL Aspartate Amino Transferase (AST) 25 13-40 U/L Alanine Aminotransferase (ALT) 28 7-40 U/L Alkaline Phosphatase 94 46-116 U/L B-Type Natriuretic Peptide 311.28 0-100 pg/mL Total Protein 6.2 5.7-8.2 g/dL Albumin 3.7 3.2-4.8 g/dL Assessment Acute kidney injury on chronic kidney disease stage 4 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 There is no plan for contrast at this time however I did explained to patient that given chronic kidney disease stage 4 he is high-risk for contrast induced nephropathy and may have to start dialysis if he were to require contrast. They will discuss risks and benefits should surgeon intervention be required. Plan discussed with: Patient, Spouse SETH GIFFORD MD Oct 10, 2024 12:09
[2024-10-10] MEDS: metOLazone 5 MG TAB PO ONE (13:22)
--- NOTE | 2024-10-10 14:18 | DVHPN2 ---
Reviewed: Care Plan, H&P, Labs, Medications, Previous Orders, Radiology Changes from previous H/P or p: No Changes Eyes: No Pain, No Vision change, No Conjunctivae inflammation, No Eyelid inflammation, No Other, No Redness ENT: No Ear pain, No Ear discharge, No Nose pain, No Nose discharge, No Nose congestion, No Mouth pain, No Mouth swelling, No Throat pain, No Throat swelling, No Other Cardiovascular: Chest Pain; No Palpitations, No Orthopnea, No Paroxysmal Noc. Dyspnea, No Edema, No Lt Headedness, No Other Respiratory: Cough, Shortness of breath, SOB with excertion Gastrointestinal: No Nausea, No Vomiting, No Abdominal Pain, No Diarrhea, No Constipation, No Melena, No Hematochezia, No Other Genitourinary: No Dysuria, No Frequency, No Incontinence, No Hematuria, No Retention, No Other Musculoskeletal: No other, No neck pain, No shoulder pain, No arm pain, No back pain, No hand pain, No leg pain, No foot pain Skin: No Rash, No Lesions, No Jaundice, No Bruising, No Other Objective Vitals Vital Signs Date Time Temp Pulse Resp B/P (MAP) Pulse Ox O2 Delivery O2 Flow Rate FiO2 10/10/24 13:22 112/60 10/10/24 12:59 98.1 114 20 97 98.1 10/10/24 10:00 Nasal Cannula* 2 28 Intake/Output Intake and Output 10/10/24 07:00 Intake Total 1750 ml Output Total 1075 ml Balance 675 ml Intake Oral 1700 ml IV Total 50 ml Output Urine Total 1075 ml # Voids 3 Medications Current Medications Medications Dose Ordered Sig/[place]anna Route Start Time Stop Time Status Last Admin Dose Admin Diagnostic Test (Pha) 1 strip ACHS 10/08/24 22:00 10/10/24 11:41 1 STRIP Insulin Human Regular AC SC 10/09/24 07:00 10/10/24 11:42 2 UNITS Insulin Human Regular HS SC 10/08/24 22:00 10/09/24 21:04 2 UNITS Dextrose 50 ml UD PRN IV 10/08/24 20:00 Lorazepam 0.5 mg Q6HP PRN PO 10/08/24 20:00 Docusate Sodium 100 mg BIDPRN PRN PO 10/08/24 20:00 Acetaminophen 650 mg Q6HP PRN PO 10/08/24 20:00 Ondansetron HCl 4 mg Q4HP PRN IV 10/08/24 20:00 Morphine Sulfate 1 mg Q4HPRN PRN IV 10/08/24 20:00 Furosemide 40 mg BIDD IV 10/09/24 06:00 10/09/24 16:55 40 MG Albuterol 2.5 mg Q6HP PRN NEB 10/08/24 20:00 10/10/24 07:01 2.5 MG Ceftriaxone Sodium 50 ml @ 100 mls/hr DAILY IV 10/08/24 20:00 10/10/24 08:19 100 MLS/HR Clopidogrel Bisulfate 75 mg DAILY PO 10/10/24 10:00 10/10/24 08:18 75 MG Metoprolol Tartrate 2.5 mg Q4HP PRN IV 10/10/24 03:15 10/10/24 08:12 2.5 MG Heparin Sodium/ Dextrose 250 ml @ 19 mls/hr [id number] IV 10/10/24 09:30 10/10/24 09:30 19 MLS/HR Laboratory Results Laboratory Tests 10/10/24 07:22 Chemistry Test 10/09/24 15:46 10/10/24 07:22 Calcium Level 8.8 mg/dL (8.7-10.4) 9.3 mg/dL (8.7-10.4) Coagulation Test 10/09/24 15:46 10/10/24 07:22 Prothrombin Time 11.4 sec (9.3-11.8) 11.0 sec (9.3-11.8) Prothrombin Time INR 1.08 (0.9-1.15) 1.04 (0.9-1.15) Activated Partial Thromboplast Time 73.5 SEC (24.5-34.5) *H 30.3 SEC (24.5-34.5) Lipid panel Test 10/09/24 15:46 Cholesterol Level 125 mg/dL (< 200) HDL Cholesterol 37 mg/dL (40-59) L Triglycerides Level 142 mg/dL (< 150) HgA1c, TSH Test 10/09/24 15:46 Thyroid Stimulating Hormone (TSH) 0.61 uIU/mL (0.55-4.78) Urinalysis Test 10/08/24 20:15 Urine Color Colorless (Yellow) Urine Clarity Clear (Clear) Urine pH 6.0 (5.0-9.0) Urine Specific [place] 1.010 (1.001-1.035) Urine Protein 2+ (Negative) H Urine Ketones Negative (Negative) Urine Blood 1+ /uL (Negative) H Urine Nitrite Negative (Negative) Urine Bilirubin Negative (Negative) Urine Urobilinogen Normal mg/dL (Negative) Urine Leukocyte Esterase Negative /uL (Negative) Urine RBC 7 /hpf (0 - 3) Urine Microscopic WBC 1 /HPF (0-3) Urine Squamous Epithelial Cells None seen /hpf (<5) Urine Bacteria None seen /hpf (None Seen) Urine Glucose 2+ mg/dL (Normal) H Labs and/or images reviewed: Labs reviewed by me, Image(s) reviewed by me Assessment/Plan Assessment/Plan Patient was transferred from urgent care, [facility] Acute on chronic hypoxic respiratory failure Right pleural effusion: Pulmonary consult for Dr. Groves Radiology consult for thoracentesis CKD 4 with fluid overload consult for Dr. Riojas Coronary artery disease History of [place] Hypertension Acute exacerbation of severe systolic congestive heart failure ejection fraction 25 percent with severe and critical aortic stenosis, cardiology Dr. Phillips advised the patient needs aortic valve replacement and advised transfer to [place] Acute COPD exacerbation Uncontrolled diabetes: Insulin sliding scale Acute hyperkalemia potassium 5.2. Treatment per protocol Elevated D-dimer 3.85 heparin drip per protocol DVT lower extremities ruled out V/Q scan pending History of CABG Jun 2023 History of lung cancer S/P right lower lobectomy November 2023 Time Spent 70 minutes Advanced care planning time 20 minutes Patient is full code Not stable for transfer to [facility] [phone] at bedside Plan discussed with: Patient, Spouse Date of Service: Oct 10, 2024 Billing Provider: LATOYA DOTSON MD Common Visit Codes: [id number] INP/OBS CARE(HIGH) LATOYA DOTSON MD Oct 10, 2024 14:18
[2024-10-10 16:51] LABS: INR 1.08 (0.9-1.15); Prothrombin Time 11.4 sec (9.3-11.8)
[2024-10-10 16:58] LABS: Partial Thromboplastin Time 116.8 SEC (24.5-34.5)
--- NOTE | 2024-10-10 17:12 | CONS ---
Pharmacy Clinical Information: HEPARIN DRIP CURRENTLY STOPPED FOR 1 HOUR; WILL RESTART AT 1800 AT RATE 1600 UNITS/HR = 16 ML/HR PER APTT OF 116.8. CONFIRMED WITH BRENDA AVENDANO NEXT APTT DRAW SCHEDULED FOR 10/11 @0000 PER RX PROTOCOL. SITA HORTON PHARMACIST Oct 10, 2024 17:12
[2024-10-10] MEDS: ACETAMINOPHEN 325 MG TAB PO PRN (22:20)
--- NOTE | 2024-10-10 23:16 | DVHPN2 ---
Progress Note - Dictate Date Seen: Oct 10, 2024 Medical Necessity Reason Pt with a Central, PICC or Fol: No Subjective Patient was seen and evaluated in follow up. Patient is complaining of generalized pain. Patient is on heparin drip. BUN 55, RESEARCH AND DEVELOPMENT TESTER 3.55. Echo shows an EF of only 25%, aortic stenosis, mild pulmonary HTN. Telemetry reviewed. vital signs Vital Sign Date Time Temp Pulse Resp B/P (MAP) Pulse Ox O2 Delivery O2 Flow Rate FiO2 10/10/24 18:44 120 130/78 10/10/24 16:58 98.2 20 98 98.2 10/10/24 10:00 Nasal Cannula* 2 28 Total Intake and Output 10/09/24 10/09/24 10/10/24 15:00 23:00 07:00 Intake Total 50 ml 740 ml 960 ml Output Total 425 ml 650 ml Balance 50 ml 315 ml 310 ml medications Current Medications Medications Dose Ordered Sig/[place] Route Start Time Stop Time Status Last Admin Dose Admin Diagnostic Test (Pha) 1 strip ACHS 10/08/24 22:00 10/10/24 16:55 1 STRIP Insulin Human Regular AC SC 10/09/24 07:00 10/10/24 11:42 2 UNITS Insulin Human Regular HS SC 10/08/24 22:00 10/09/24 21:04 2 UNITS Dextrose 50 ml UD PRN IV 10/08/24 20:00 Lorazepam 0.5 mg Q6HP PRN PO 10/08/24 20:00 Docusate Sodium 100 mg BIDPRN PRN PO 10/08/24 20:00 Acetaminophen 650 mg Q6HP PRN PO 10/08/24 20:00 Ondansetron HCl 4 mg Q4HP PRN IV 10/08/24 20:00 Morphine Sulfate 1 mg Q4HPRN PRN IV 10/08/24 20:00 Furosemide 40 mg BIDD IV 10/09/24 06:00 10/10/24 17:52 40 MG Albuterol 2.5 mg Q6HP PRN NEB 10/08/24 20:00 10/10/24 07:01 2.5 MG Ceftriaxone Sodium 50 ml @ 100 mls/hr DAILY IV 10/08/24 20:00 10/10/24 08:19 100 MLS/HR Clopidogrel Bisulfate 75 mg DAILY PO 10/10/24 10:00 10/10/24 08:18 75 MG Metoprolol Tartrate 2.5 mg Q4HP PRN IV 10/10/24 03:15 10/10/24 18:44 2.5 MG Heparin Sodium/ Dextrose 250 ml @ 16 mls/hr [id number] IV 10/10/24 18:00 10/10/24 17:59 16 MLS/HR objective GENERAL: Alert and oriented x 3. No acute distress. Morbidly obese. EYES: PERRL, EOMI. Anicteric. HENT: Moist mucous membranes. LUNGS: Coarse breath sounds. CARDIOVASCULAR: Regular rate and rhythm. ABDOMEN: Soft, nontender and nondistended. EXTREMITIES: 1+ pitting edema. NEUROLOGIC: No focal neurological deficits. SKIN: Warm, dry. laboratory and microbiology Laboratory Tests 10/10/24 07:22 Test 10/10/24 07:22 Range/Units Serum Glucose 99 74-106 mg/dL Problem List Rule out structural heart disease. Severe coronary artery disease status post quintuple bypass CABG in 2023 (on Plavix). Hypertensive urgency, resolved. Dyslipidemia. Rule out pulmonary embolism. COPD. Lung cancer status post right lower lobe lobectomy. Sleep apnea. History bladder cancer status post bladder tumor resection. Chronic kidney disease. Insulin-dependent type 2 diabetes mellitus. Peripheral neuropathy. History of TIA. Previous heavy tobacco use. Morbid obesity. Aortic stenosis. Mild pulmonary HTN. Assessment/Plan Continued all current supportive medical care. IV antibiotics as ordered. Plavix, Metoprolol. Diuretics with Lasix. Heparin drip per pharmacy. Morphine for pain management. Additional plan as per the hospital course. Plan discussed with: Patient TINY COOPER MD Oct 10, 2024 21:28
[2024-10-11] VITALS (18 sets, daily range): BP systolic 115–152; BP diastolic 69–89; PULSE 77–135; RESP 16–22; TEMP 97.8–98.6; O2SAT 94–100
[2024-10-11 01:23] LABS: INR 1.08 (0.9-1.15); Prothrombin Time 11.4 sec (9.3-11.8)
[2024-10-11 01:29] LABS: Partial Thromboplastin Time 76.7 SEC (24.5-34.5)
[2024-10-11] MEDS: HEPARIN DRIP/D5W 100UNITS/ML 250 ML IV SCH ×2 (01:47→20:09)
[2024-10-11] MEDS: IPRATROPIUM BROM 0.5 MG/2.5ML INH SOL ONE (08:10)
[2024-10-11 08:34] LABS: Basophils # (auto) 0.1 10 ^3/uL (0-0.2); Basophils % (auto) 1.1 % (0.0-2.0); Eosinophils # (auto) 0.3 10 ^3/uL (0-0.8); Eosinophils % (auto) 4.4 % (0.0-7.0); Hematocrit 36.3 % (41.0-53.0); Hemoglobin 11.5 g/dL (13.5-17.5); Lymphocytes # (auto) 1.4 10 ^3/uL (0.4-5.4); Lymphocytes % (auto) 20.7 % (10.0-50.0); Mean Corpuscular Hemoglobin 28.3 pg (28.0-32.0); Mean Corpuscular Hgb Conc. 31.8 g/dL (32.0-36.0); Mean Corpuscular Volume 89.1 fL (80.0-100.0); Monocytes # (auto) 0.7 10 ^3/uL (0-1.3); Monocytes % (auto) 9.7 % (0.0-12.0); Neutrophils # (auto) 4.4 10 ^3/uL (1.6-8.6); Neutrophils % (auto) 64.1 % (37.0-80.0); Nucleated Red Blood Cells % 0.1 %; Platelet Count (auto) 164 10^3/uL (140-450); Red Blood Cells 4.07 10^6/uL (4.5-5.90); Red Cell Distribution Width 18.4 % (11.8-14.3); White Blood Cell 6.8 10^3/uL (4.4-10.8)
[2024-10-11 08:38] LABS: Calcium 9.5 mg/dL (8.7-10.4); Chloride 102 mmol/L (98-107); Potassium 4.9 mmol/L (3.5-5.1); Sodium 139 mmol/L (136-145)
[2024-10-11 08:39] LABS: Anion Gap 13 (5-15); Carbon Dioxide 24 mmol/L (20-31)
[2024-10-11 08:44] LABS: BUN/Creatinine Ratio 15.6 (10.0-20.0)
[2024-10-11 08:46] LABS: Blood Urea Nitrogen 56 mg/dL (9-23); Glucose 127 mg/dL (74-106)
[2024-10-11 10:39] LABS: INR 1.07 (0.9-1.15); Partial Thromboplastin Time 56.1 SEC (24.5-34.5); Prothrombin Time 11.3 sec (9.3-11.8)
--- NOTE | 2024-10-11 10:46 | ECG ---
[facility] Test Date: 2024-10-08 Test Time: 19:22:21 Pat Name: BENITA CHANDLER Department: ED Room: 0295T A Gender: M Director Of Public Relations: MIGUEL : 1945 Requested By: MCKAYLA SORIA Order Number: [id number] Reading MD: Benita Quinn Measurements Intervals [place] Rate: 115 P: 112 AL: 102 QRS: -49 QRSD: 150 T: 75 QT: 370 QTc: 512 Interpretive Statements Sinus tachycardia Left bundle branch block Electronically Signed On 10-13-2024 17:05:29 PDT by Benita Quinn Please click the below link to view image of tracing.
--- NOTE | 2024-10-11 12:06 | DVH ---
Bilateral Chest Sonogram Clinical history: evaluate right side pleural effusion Technique: Limited sonographic evaluation of the right and left chest was performed. Findings/Impression: Moderate right pleural effusion. No left pleural effusion.
--- NOTE | 2024-10-11 12:36 | DVHPN2 ---
Progress Note - Dictate Date Seen: Oct 11, 2024 Medical Necessity Reason Pt with a Central, PICC or Fol: No vital signs Vital Sign Date Time Temp Pulse Resp B/P (MAP) Pulse Ox O2 Delivery O2 Flow Rate FiO2 10/11/24 10:27 115 130/80 10/11/24 10:00 98 Nasal Cannula* 2 10/11/24 09:00 97.8 20 97.8 Total Intake and Output 10/10/24 10/10/24 10/11/24 15:00 23:00 07:00 Intake Total 445 ml 1109 ml 105 ml Output Total 0 ml 300 ml Balance 445 ml 1109 ml -195 ml medications Current Medications Medications Dose Ordered Sig/[place] Route Start Time Stop Time Status Last Admin Dose Admin Diagnostic Test (Pha) 1 strip ACHS 10/08/24 22:00 10/11/24 11:39 1 STRIP Insulin Human Regular AC SC 10/09/24 07:00 10/11/24 11:39 2 UNITS Insulin Human Regular HS SC 10/08/24 22:00 10/09/24 21:04 2 UNITS Dextrose 50 ml UD PRN IV 10/08/24 20:00 Lorazepam 0.5 mg Q6HP PRN PO 10/08/24 20:00 Docusate Sodium 100 mg BIDPRN PRN PO 10/08/24 20:00 Acetaminophen 650 mg Q6HP PRN PO 10/08/24 20:00 10/11/24 09:28 650 MG Ondansetron HCl 4 mg Q4HP PRN IV 10/08/24 20:00 Morphine Sulfate 1 mg Q4HPRN PRN IV 10/08/24 20:00 Furosemide 40 mg BIDD IV 10/09/24 06:00 10/11/24 06:17 40 MG Albuterol 2.5 mg Q6HP PRN NEB 10/08/24 20:00 10/10/24 07:01 2.5 MG Ceftriaxone Sodium 50 ml @ 100 mls/hr DAILY IV 10/08/24 20:00 10/11/24 09:27 100 MLS/HR Clopidogrel Bisulfate 75 mg DAILY PO 10/10/24 10:00 10/11/24 09:27 75 MG Metoprolol Tartrate 2.5 mg Q4HP PRN IV 10/10/24 03:15 10/11/24 09:29 2.5 MG Ipratropium [place] 0.5 mg Q4HPRN PRN NEB 10/11/24 01:15 Heparin Sodium/ Dextrose 250 ml @ 14 mls/hr [id number] IV 10/11/24 01:45 10/11/24 01:47 14 MLS/HR laboratory and microbiology Laboratory Tests 10/11/24 07:03 Test 10/11/24 07:03 Range/Units Serum Glucose 127 H 74-106 mg/dL Assessment/Plan acute hypoxemic resp failure h/o lung cancer s/p resection in [address] effusion COPD management plan on 2lpm 02 vs stable iv heparin drip VQ today if neg've will proceed to thoracentesis obtain US chest abx bronchodilators supportive care management per primary team family updated Plan discussed with: Patient FRANCESCO DOTSON MD Oct 11, 2024 12:36
--- NOTE | 2024-10-11 14:57 | DVHPN2 ---
Progress Note Date Seen: Oct 11, 2024 Medical Necessity Reason Pt with a Central, PICC or Fol: No Subjective Patient reports: No new complaints, Other Review of Systems: RESPIRATORY:Abnormal (sob) Objective vital signs Vital Sign Date Time Temp Pulse Resp B/P (MAP) Pulse Ox O2 Delivery O2 Flow Rate FiO2 10/11/24 13:00 98.4 105 20 129/88 (102) 99 98.4 10/11/24 10:00 Nasal Cannula* 2 28 Total Intake and Output 10/10/24 10/10/24 10/11/24 15:00 23:00 07:00 Intake Total 445 ml 1109 ml 105 ml Output Total 0 ml 300 ml Balance 445 ml 1109 ml -195 ml medications Current Medications Medications Dose Ordered Sig/[place] Route Start Time Stop Time Status Last Admin Dose Admin Diagnostic Test (Pha) 1 strip ACHS 10/08/24 22:00 10/11/24 11:39 1 STRIP Insulin Human Regular AC SC 10/09/24 07:00 10/11/24 11:39 2 UNITS Insulin Human Regular HS SC 10/08/24 22:00 10/09/24 21:04 2 UNITS Dextrose 50 ml UD PRN IV 10/08/24 20:00 Lorazepam 0.5 mg Q6HP PRN PO 10/08/24 20:00 Docusate Sodium 100 mg BIDPRN PRN PO 10/08/24 20:00 Acetaminophen 650 mg Q6HP PRN PO 10/08/24 20:00 10/11/24 09:28 650 MG Ondansetron HCl 4 mg Q4HP PRN IV 10/08/24 20:00 Morphine Sulfate 1 mg Q4HPRN PRN IV 10/08/24 20:00 Furosemide 40 mg BIDD IV 10/09/24 06:00 10/11/24 06:17 40 MG Albuterol 2.5 mg Q6HP PRN NEB 10/08/24 20:00 10/10/24 07:01 2.5 MG Ceftriaxone Sodium 50 ml @ 100 mls/hr DAILY IV 10/08/24 20:00 10/11/24 09:27 100 MLS/HR Clopidogrel Bisulfate 75 mg DAILY PO 10/10/24 10:00 10/11/24 09:27 75 MG Metoprolol Tartrate 2.5 mg Q4HP PRN IV 10/10/24 03:15 10/11/24 09:29 2.5 MG Ipratropium [place] 0.5 mg Q4HPRN PRN NEB 10/11/24 01:15 Heparin Sodium/ Dextrose 250 ml @ 14 mls/hr [id number] IV 10/11/24 01:45 10/11/24 01:47 14 MLS/HR Examination: GENERAL:Normal, HEENT:Normal, NECK:Normal, LUNGS:Abnormal, CVS:Normal, ABDOMEN:Normal, MSK:Normal, SKIN:Normal, NEURO:Normal, :Normal laboratory and microbiology Laboratory Tests 10/11/24 07:03 Test 10/11/24 07:03 Range/Units Serum Glucose 127 H 74-106 mg/dL Problem List/Assessment/Plan Problem List/Assessment/Plan Acute kidney injury on chronic kidney disease stage 4 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
--- NOTE | 2024-10-11 15:03 | DVH ---
NUCLEAR MEDICINE VENTILATION/PERFUSION LUNG SCAN. INDICATION: Elevated D-dimer rule out PULMONARY EMBOLISM COMPARISON: None TECHNIQUE: Following intravenous demonstration of 5.2 millicuries of technetium 99m MAA, and inhala tion of 9.5 mCi of Xe 133 scintigrams were obtained in multiple projections of the lungs. FINDINGS: There is normal uptake of radionuclide on both the ventilation and perfusion portions of the examinat ion. No mismatched perfusion defects are demonstrated. IMPRESSION: Low probability for PE.
--- NOTE | 2024-10-11 15:08 | DVHPN2 ---
Reviewed: Care Plan, H&P, Labs, Medications, Previous Orders, Radiology Changes from previous H/P or p: No Changes Eyes: No Pain, No Vision change, No Conjunctivae inflammation, No Eyelid inflammation, No Other, No Redness ENT: No Ear pain, No Ear discharge, No Nose pain, No Nose discharge, No Nose congestion, No Mouth pain, No Mouth swelling, No Throat pain, No Throat swelling, No Other Cardiovascular: Chest Pain; No Palpitations, No Orthopnea, No Paroxysmal Noc. Dyspnea, No Edema, No Lt Headedness, No Other Respiratory: Cough, Shortness of breath, SOB with excertion Gastrointestinal: No Nausea, No Vomiting, No Abdominal Pain, No Diarrhea, No Constipation, No Melena, No Hematochezia, No Other Genitourinary: No Dysuria, No Frequency, No Incontinence, No Hematuria, No Retention, No Other Musculoskeletal: No other, No neck pain, No shoulder pain, No arm pain, No back pain, No hand pain, No leg pain, No foot pain Skin: No Rash, No Lesions, No Jaundice, No Bruising, No Other Objective Vitals Vital Signs Date Time Temp Pulse Resp B/P (MAP) Pulse Ox O2 Delivery O2 Flow Rate FiO2 10/11/24 13:00 98.4 105 20 129/88 (102) 99 98.4 10/11/24 10:00 Nasal Cannula* 2 28 Intake/Output Intake and Output 10/11/24 07:00 Intake Total 1659 ml Output Total 300 ml Balance 1359 ml Intake Oral 1495 ml IV Total 164 ml Output Urine Total 300 ml Stool Total 0 ml # Voids 3 Medications Current Medications Medications Dose Ordered Sig/[place] Route Start Time Stop Time Status Last Admin Dose Admin Diagnostic Test (Pha) 1 strip ACHS 10/08/24 22:00 10/11/24 11:39 1 STRIP Insulin Human Regular AC SC 10/09/24 07:00 10/11/24 11:39 2 UNITS Insulin Human Regular HS SC 10/08/24 22:00 10/09/24 21:04 2 UNITS Dextrose 50 ml UD PRN IV 10/08/24 20:00 Lorazepam 0.5 mg Q6HP PRN PO 10/08/24 20:00 Docusate Sodium 100 mg BIDPRN PRN PO 10/08/24 20:00 Acetaminophen 650 mg Q6HP PRN PO 10/08/24 20:00 10/11/24 09:28 650 MG Ondansetron HCl 4 mg Q4HP PRN IV 10/08/24 20:00 Morphine Sulfate 1 mg Q4HPRN PRN IV 10/08/24 20:00 Furosemide 40 mg BIDD IV 10/09/24 06:00 10/11/24 06:17 40 MG Albuterol 2.5 mg Q6HP PRN NEB 10/08/24 20:00 10/10/24 07:01 2.5 MG Ceftriaxone Sodium 50 ml @ 100 mls/hr DAILY IV 10/08/24 20:00 10/11/24 09:27 100 MLS/HR Clopidogrel Bisulfate 75 mg DAILY PO 10/10/24 10:00 10/11/24 09:27 75 MG Metoprolol Tartrate 2.5 mg Q4HP PRN IV 10/10/24 03:15 10/11/24 09:29 2.5 MG Ipratropium [place] 0.5 mg Q4HPRN PRN NEB 10/11/24 01:15 Heparin Sodium/ Dextrose 250 ml @ 14 mls/hr [id number] IV 10/11/24 01:45 10/11/24 01:47 14 MLS/HR Laboratory Results Laboratory Tests 10/11/24 07:03 Chemistry Test 10/11/24 07:03 Calcium Level 9.5 mg/dL (8.7-10.4) Coagulation Test 10/10/24 16:12 10/11/24 00:10 10/11/24 09:50 Prothrombin Time 11.4 sec (9.3-11.8) 11.4 sec (9.3-11.8) 11.3 sec (9.3-11.8) Prothrombin Time INR 1.08 (0.9-1.15) 1.08 (0.9-1.15) 1.07 (0.9-1.15) Activated Partial Thromboplast Time 116.8 SEC (24.5-34.5) *H 76.7 SEC (24.5-34.5) *H 56.1 SEC (24.5-34.5) H Urinalysis Test 10/08/24 20:15 Urine Color Colorless (Yellow) Urine Clarity Clear (Clear) Urine pH 6.0 (5.0-9.0) Urine Specific [place] 1.010 (1.001-1.035) Urine Protein 2+ (Negative) H Urine Ketones Negative (Negative) Urine Blood 1+ /uL (Negative) H Urine Nitrite Negative (Negative) Urine Bilirubin Negative (Negative) Urine Urobilinogen Normal mg/dL (Negative) Urine Leukocyte Esterase Negative /uL (Negative) Urine RBC 7 /hpf (0 - 3) Urine Microscopic WBC 1 /HPF (0-3) Urine Squamous Epithelial Cells None seen /hpf (<5) Urine Bacteria None seen /hpf (None Seen) Urine Glucose 2+ mg/dL (Normal) H Labs and/or images reviewed: Labs reviewed by me, Image(s) reviewed by me Assessment/Plan Assessment/Plan Patient was transferred from urgent care, [facility] Acute on chronic hypoxic respiratory failure Right pleural effusion: Pulmonary consult for Dr. Groves Radiology consult for thoracentesis CKD 4 with fluid overload consult for Dr. Riojas Coronary artery disease History of PR Hypertension Acute exacerbation of severe systolic congestive heart failure ejection fraction 25 percent with severe and critical aortic stenosis, cardiology Dr. Phillips advised the patient needs aortic valve replacement and advised transfer to [place] Acute COPD exacerbation Uncontrolled diabetes: Insulin sliding scale Acute hyperkalemia potassium 5.2. Treatment per protocol Elevated D-dimer 3.85 heparin drip per protocol DVT lower extremities ruled out V/Q scan pending History of CABG Jun 2023 History of lung cancer S/P right lower lobectomy November 2023 Right pleural effusion: Dr. Barahona planning for thoracentesis in the morning, the son wants thoracentesis done before transfer to [place] V/Q scan ruled out PE pending Time Spent 50 minutes Advanced care planning time 20 minutes Patient is full code Not stable for transfer to [place] Son [facility] [phone] at bedside Plan discussed with: Patient Date of Service: Oct 11, 2024 Billing Provider: LATOYA DOTSON MD Common Visit Codes: [id number] CARE 30-74 MIN LATOYA DOTSON MD Oct 11, 2024 15:08
[2024-10-11] MEDS ORDERED: ATOR-47 PO (15:13)
[2024-10-11] MEDS ORDERED: TAMS0.4C39 PO (15:13)
[2024-10-11] MEDS ORDERED: METO25TA5 PO (15:13)
[2024-10-11] MEDS ORDERED: ALLO100T PO (15:13)
[2024-10-11] MEDS: IPRATROPIUM BROM 0.5 MG/2.5ML INH SOL NEB PRN (16:00)
[2024-10-11 18:28] LABS: INR 1.06 (0.9-1.15); Partial Thromboplastin Time 46.5 SEC (24.5-34.5); Prothrombin Time 11.2 sec (9.3-11.8)
[2024-10-11] MEDS: METOPROLOL TARTRATE 25 MG TAB PO SCH (21:14)
[2024-10-11] MEDS: ATORVASTATIN 20 MG TAB PO SCH (21:14)
--- NOTE | 2024-10-11 22:59 | DVHPN2 ---
Progress Note - Dictate Date Seen: Oct 11, 2024 Medical Necessity Reason Pt with a Central, PICC or Fol: No Subjective Patient was seen and evaluated in follow up. Patient is on 2 LPM NC. Patient is complaining of SOB. VQ scan shows low probability for PE. Chest US shows moderate right pleural effusion. No left pleural effusion. Patient on heparin drip. 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 Telemetry reviewed. vital signs Vital Sign Date Time Temp Pulse Resp B/P (MAP) Pulse Ox O2 Delivery O2 Flow Rate FiO2 10/11/24 21:14 135 157/89 10/11/24 21:00 98.6 17 99 98.6 10/11/24 20:08 2.0 28 10/11/24 19:33 Nasal Cannula* Total Intake and Output 10/10/24 10/10/24 10/11/24 14:59 22:59 06:59 Intake Total 445 ml 1109 ml 105 ml Output Total 0 ml 300 ml Balance 445 ml 1109 ml -195 ml medications Current Medications Medications Dose Ordered Sig/[place] Route Start Time Stop Time Status Last Admin Dose Admin Diagnostic Test (Pha) 1 strip ACHS 10/08/24 22:00 10/11/24 21:14 1 STRIP Insulin Human Regular AC SC 10/09/24 07:00 10/11/24 11:39 2 UNITS Insulin Human Regular HS SC 10/08/24 22:00 10/11/24 21:18 2 UNITS Dextrose 50 ml UD PRN IV 10/08/24 20:00 Lorazepam 0.5 mg Q6HP PRN PO 10/08/24 20:00 Docusate Sodium 100 mg BIDPRN PRN PO 10/08/24 20:00 Acetaminophen 650 mg Q6HP PRN PO 10/08/24 20:00 10/11/24 21:20 650 MG Ondansetron HCl 4 mg Q4HP PRN IV 10/08/24 20:00 Morphine Sulfate 1 mg Q4HPRN PRN IV 10/08/24 20:00 Furosemide 40 mg BIDD IV 10/09/24 06:00 10/11/24 17:30 40 MG Albuterol 2.5 mg Q6HP PRN NEB 10/08/24 20:00 10/11/24 15:59 2.5 MG Ceftriaxone Sodium 50 ml @ 100 mls/hr DAILY IV 10/08/24 20:00 10/11/24 09:27 100 MLS/HR Clopidogrel Bisulfate 75 mg DAILY PO 10/10/24 10:00 10/11/24 09:27 75 MG Metoprolol Tartrate 2.5 mg Q4HP PRN IV 10/10/24 03:15 10/11/24 15:14 2.5 MG Ipratropium [place] 0.5 mg Q4HPRN PRN NEB 10/11/24 01:15 10/11/24 16:00 0.5 MG Allopurinol 100 mg DAILY PO 10/12/24 10:00 Clopidogrel Bisulfate 75 mg DAILY PO 10/12/24 10:00 Cancel Metoprolol Tartrate 25 mg BID PO 10/11/24 22:00 10/11/24 21:14 25 MG Tamsulosin HCl 0.4 mg DAILY PO 10/12/24 10:00 Patient Own Medication 1 tab DAILY PO 10/12/24 10:00 UNV Atorvastatin Calcium 80 mg HS PO 10/11/24 22:00 10/11/24 21:14 80 MG Heparin Sodium/ Dextrose 250 ml @ 16 mls/hr [id number] IV 10/11/24 20:00 10/11/24 20:09 16 MLS/HR objective GENERAL: Alert and oriented x 3. No acute distress. Morbidly obese. EYES: PERRL, EOMI. Anicteric. HENT: Moist mucous membranes. LUNGS: Coarse breath sounds. CARDIOVASCULAR: Regular rate and rhythm. ABDOMEN: Soft, nontender and nondistended. EXTREMITIES: 1+ pitting edema. NEUROLOGIC: No focal neurological deficits. SKIN: Warm, dry. laboratory and microbiology Laboratory Tests 10/11/24 07:03 Test 10/11/24 07:03 Range/Units Serum Glucose 127 H 74-106 mg/dL Problem List Rule out structural heart disease. Severe coronary artery disease status post quintuple bypass CABG in 2023 (on Plavix). Hypertensive urgency, resolved. Dyslipidemia. Rule out pulmonary embolism. COPD. Lung cancer status post right lower lobe lobectomy. Sleep apnea. History bladder cancer status post bladder tumor resection. Chronic kidney disease. Insulin-dependent type 2 diabetes mellitus. Peripheral neuropathy. History of TIA. Previous heavy tobacco use. Morbid obesity. Aortic stenosis. Mild pulmonary HTN. Assessment/Plan Continued all current supportive medical care. IV antibiotics as ordered. Plavix, Metoprolol. Diuretics with Lasix. Heparin drip per pharmacy. Morphine for pain management. Additional plan as per the hospital course. Dietary Evaluation Review Comments: 1) CCHO 60gm + renal specific 60gm protein 2) Refer to CDE on DC 3) Continue current POC Expected Outcomes/Goals: To meet >75% estimated needs Fu 3-5 days Plan discussed with: Patient TINY COOPER MD Oct 11, 2024 22:59
[2024-10-12] VITALS (13 sets, daily range): BP systolic 102–135; BP diastolic 57–81; PULSE 67–153; RESP 18–20; TEMP 97.5–98.1; O2SAT 92–100
[2024-10-12 02:15] LABS: Basophils # (auto) 0.1 10 ^3/uL (0-0.2); Basophils % (auto) 1.1 % (0.0-2.0); Eosinophils # (auto) 0.3 10 ^3/uL (0-0.8); Eosinophils % (auto) 4.6 % (0.0-7.0); Hematocrit 33.3 % (41.0-53.0); Lymphocytes # (auto) 1.4 10 ^3/uL (0.4-5.4); Lymphocytes % (auto) 19.8 % (10.0-50.0); Mean Corpuscular Hemoglobin 28.2 pg (28.0-32.0); Mean Corpuscular Volume 85.5 fL (80.0-100.0); Monocytes # (auto) 0.7 10 ^3/uL (0-1.3); Monocytes % (auto) 9.8 % (0.0-12.0); Neutrophils # (auto) 4.7 10 ^3/uL (1.6-8.6); Neutrophils % (auto) 64.7 % (37.0-80.0); Platelet Count (auto) 214 10^3/uL (140-450); Red Blood Cells 3.89 10^6/uL (4.5-5.90); Red Cell Distribution Width 17.3 % (11.8-14.3); White Blood Cell 7.3 10^3/uL (4.4-10.8)
[2024-10-12 02:52] LABS: Chloride 100 mmol/L (98-107); Potassium 4.2 mmol/L (3.5-5.1); Sodium 137 mmol/L (136-145)
[2024-10-12 02:53] LABS: Anion Gap 9 (5-15); Calcium 9.4 mg/dL (8.7-10.4); Carbon Dioxide 28 mmol/L (20-31)
[2024-10-12 02:58] LABS: BUN/Creatinine Ratio 17.4 (10.0-20.0)
[2024-10-12 02:59] LABS: Magnesium 1.7 mg/dL (1.6-2.6)
[2024-10-12 03:03] LABS: Blood Urea Nitrogen 65 mg/dL (9-23); Glucose 122 mg/dL (74-106)
[2024-10-12] MEDS: TAMSULOSIN HYDROCHLORIDE 0.4 MG CAP PO SCH (08:35)
[2024-10-12] MEDS: ALLOPURINOL 100 MG TAB PO SCH (08:35)
[2024-10-12] MEDS ORDERED: PATIENTS OWN MEDICATION (Atorvastatin Calcium 1 TAB) PO SCH (10:00)
[2024-10-12] MEDS ORDERED: CLOPIDOGREL BISULFATE 75 MG TAB PO SCH (10:00)
--- NOTE | 2024-10-12 12:21 | DVHPN2 ---
Reviewed: Care Plan, H&P, Labs, Medications, Previous Orders, Radiology Changes from previous H/P or p: No Changes Eyes: No Pain, No Vision change, No Conjunctivae inflammation, No Eyelid inflammation, No Other, No Redness ENT: No Ear pain, No Ear discharge, No Nose pain, No Nose discharge, No Nose congestion, No Mouth pain, No Mouth swelling, No Throat pain, No Throat swelling, No Other Cardiovascular: Chest Pain; No Palpitations, No Orthopnea, No Paroxysmal Noc. Dyspnea, No Edema, No Lt Headedness, No Other Respiratory: Cough, Shortness of breath, SOB with excertion Gastrointestinal: No Nausea, No Vomiting, No Abdominal Pain, No Diarrhea, No Constipation, No Melena, No Hematochezia, No Other Genitourinary: No Dysuria, No Frequency, No Incontinence, No Hematuria, No Retention, No Other Musculoskeletal: No other, No neck pain, No shoulder pain, No arm pain, No back pain, No hand pain, No leg pain, No foot pain Skin: No Rash, No Lesions, No Jaundice, No Bruising, No Other Objective Vitals Vital Signs Date Time Temp Pulse Resp B/P (MAP) Pulse Ox O2 Delivery O2 Flow Rate FiO2 10/12/24 10:00 95 Nasal Cannula* 2 28 10/12/24 09:36 115 112/68 10/12/24 08:31 97.5 18 97.5 Intake/Output Intake and Output 10/12/24 07:00 Intake Total 2250 ml Output Total 4025 ml Balance -1775 ml Intake Oral 2200 ml IV Total 50 ml Output Urine Total 4025 ml Medications Current Medications Medications Dose Ordered Sig/[place] Route Start Time Stop Time Status Last Admin Dose Admin Diagnostic Test (Pha) 1 strip ACHS 10/08/24 22:00 10/12/24 06:33 1 STRIP Insulin Human Regular AC SC 10/09/24 07:00 10/11/24 11:39 2 UNITS Insulin Human Regular HS SC 10/08/24 22:00 10/11/24 21:18 2 UNITS Dextrose 50 ml UD PRN IV 10/08/24 20:00 Lorazepam 0.5 mg Q6HP PRN PO 10/08/24 20:00 Docusate Sodium 100 mg BIDPRN PRN PO 10/08/24 20:00 Acetaminophen 650 mg Q6HP PRN PO 10/08/24 20:00 10/12/24 08:35 650 MG Ondansetron HCl 4 mg Q4HP PRN IV 10/08/24 20:00 Morphine Sulfate 1 mg Q4HPRN PRN IV 10/08/24 20:00 Furosemide 40 mg BIDD IV 10/09/24 06:00 10/12/24 06:33 40 MG Albuterol 2.5 mg Q6HP PRN NEB 10/08/24 20:00 10/12/24 06:46 2.5 MG Ceftriaxone Sodium 50 ml @ 100 mls/hr DAILY IV 10/08/24 20:00 10/12/24 08:35 100 MLS/HR Clopidogrel Bisulfate 75 mg DAILY PO 10/10/24 10:00 10/12/24 08:36 75 MG Metoprolol Tartrate 2.5 mg Q4HP PRN IV 10/10/24 03:15 10/12/24 04:44 2.5 MG Ipratropium [place] 0.5 mg Q4HPRN PRN NEB 10/11/24 01:15 10/12/24 06:46 0.5 MG Allopurinol 100 mg DAILY PO 10/12/24 10:00 10/12/24 08:35 100 MG Clopidogrel Bisulfate 75 mg DAILY PO 10/12/24 10:00 Cancel Metoprolol Tartrate 25 mg BID PO 10/11/24 22:00 10/12/24 08:36 25 MG Tamsulosin HCl 0.4 mg DAILY PO 10/12/24 10:00 10/12/24 08:35 0.4 MG Patient Own Medication 1 tab DAILY PO 10/12/24 10:00 UNV Atorvastatin Calcium 80 mg HS PO 10/11/24 22:00 10/11/24 21:14 80 MG Laboratory Results Laboratory Tests 10/12/24 01:56 Chemistry Test 10/12/24 01:56 Calcium Level 9.4 mg/dL (8.7-10.4) Magnesium Level 1.7 mg/dL (1.6-2.6) Coagulation Test 10/11/24 17:59 10/12/24 01:56 Prothrombin Time 11.2 sec (9.3-11.8) Prothrombin Time INR 1.06 (0.9-1.15) Activated Partial Thromboplast Time 46.5 SEC (24.5-34.5) H 45.3 SEC (24.5-34.5) H Urinalysis Test 10/08/24 20:15 Urine Color Colorless (Yellow) Urine Clarity Clear (Clear) Urine pH 6.0 (5.0-9.0) Urine Specific [place] 1.010 (1.001-1.035) Urine Protein 2+ (Negative) H Urine Ketones Negative (Negative) Urine Blood 1+ /uL (Negative) H Urine Nitrite Negative (Negative) Urine Bilirubin Negative (Negative) Urine Urobilinogen Normal mg/dL (Negative) Urine Leukocyte Esterase Negative /uL (Negative) Urine RBC 7 /hpf (0 - 3) Urine Microscopic WBC 1 /HPF (0-3) Urine Squamous Epithelial Cells None seen /hpf (<5) Urine Bacteria None seen /hpf (None Seen) Urine Glucose 2+ mg/dL (Normal) H Assessment/Plan Assessment/Plan Patient was transferred from urgent care, [facility] Acute on chronic hypoxic respiratory failure Right pleural effusion: Pulmonary consult for Dr. Groves Radiology consult for thoracentesis CKD 4 with fluid overload consult for Dr. Riojas Coronary artery disease History of [place] Hypertension Acute exacerbation of severe systolic congestive heart failure ejection fraction 25 percent with severe and critical aortic stenosis, cardiology Dr. Phillips advised the patient needs aortic valve replacement and advised transfer to [place] Acute COPD exacerbation Uncontrolled diabetes: Insulin sliding scale Acute hyperkalemia potassium 5.2. Treatment per protocol Elevated D-dimer 3.85 PE ruled out by negative V/Q scan, heparin discontinued DVT lower extremities ruled out History of CABG Jun 2023 History of lung cancer S/P right lower lobectomy November 2023 Right pleural effusion: Status post drainage of 1 L of fluid by Dr. Avila V/Q scan ruled out PE pending Time Spent 50 minutes Advanced care planning time 20 minutes Patient is full code Not stable for transfer to [place] today; complaining of pain in the right side of the chest at the site of the procedure Son Ike [phone] at bedside Plan discussed with: Patient My Orders Orders - LATOYA DOTSON MD Procedure Category Date Status Time Allopurinol Tablet PHA 10/12/24 In Process (Zyloprim Tablet) 10:00 Metoprolol Tartrate PHA 10/11/24 In Process Tablet (Lopressor Ta 22:00 Tamsulosin PHA 10/12/24 In Process Hydrochloride (Flomax) 10:00 Atorvastatin (Lipitor) PHA 10/11/24 In Process 22:00 Date of Service: Oct 12, 2024 Billing Provider: LATOYA DOTSON MD Common Visit Codes: [id number] INP/OBS CARE(HIGH) LATOYA DOTSON MD Oct 12, 2024 12:21
--- NOTE | 2024-10-12 13:06 | DVHPN2 ---
Progress Note - Dictate Date Seen: Oct 12, 2024 Medical Necessity Reason Pt with a Central, PICC or Fol: No vital signs Vital Sign Date Time Temp Pulse Resp B/P (MAP) Pulse Ox O2 Delivery O2 Flow Rate FiO2 10/12/24 13:00 97.6 114 18 104/71 (82) 94 97.6 10/12/24 10:00 Nasal Cannula* 2 28 Total Intake and Output 10/11/24 10/11/24 10/12/24 14:59 22:59 06:59 Intake Total 50 ml 1700 ml 500 ml Output Total 2750 ml 1275 ml Balance 50 ml -1050 ml -775 ml medications Current Medications Medications Dose Ordered Sig/[place] Route Start Time Stop Time Status Last Admin Dose Admin Diagnostic Test (Pha) 1 strip ACHS 10/08/24 22:00 10/12/24 06:33 1 STRIP Insulin Human Regular AC SC 10/09/24 07:00 10/11/24 11:39 2 UNITS Insulin Human Regular HS SC 10/08/24 22:00 10/11/24 21:18 2 UNITS Dextrose 50 ml UD PRN IV 10/08/24 20:00 Lorazepam 0.5 mg Q6HP PRN PO 10/08/24 20:00 Docusate Sodium 100 mg BIDPRN PRN PO 10/08/24 20:00 Acetaminophen 650 mg Q6HP PRN PO 10/08/24 20:00 10/12/24 08:35 650 MG Ondansetron HCl 4 mg Q4HP PRN IV 10/08/24 20:00 Morphine Sulfate 1 mg Q4HPRN PRN IV 10/08/24 20:00 Furosemide 40 mg BIDD IV 10/09/24 06:00 10/12/24 06:33 40 MG Albuterol 2.5 mg Q6HP PRN NEB 10/08/24 20:00 10/12/24 06:46 2.5 MG Ceftriaxone Sodium 50 ml @ 100 mls/hr DAILY IV 10/08/24 20:00 10/12/24 08:35 100 MLS/HR Clopidogrel Bisulfate 75 mg DAILY PO 10/10/24 10:00 10/12/24 08:36 75 MG Metoprolol Tartrate 2.5 mg Q4HP PRN IV 10/10/24 03:15 10/12/24 04:44 2.5 MG Ipratropium [place] 0.5 mg Q4HPRN PRN NEB 10/11/24 01:15 10/12/24 06:46 0.5 MG Allopurinol 100 mg DAILY PO 10/12/24 10:00 10/12/24 08:35 100 MG Clopidogrel Bisulfate 75 mg DAILY PO 10/12/24 10:00 Cancel Metoprolol Tartrate 25 mg BID PO 10/11/24 22:00 10/12/24 08:36 25 MG Tamsulosin HCl 0.4 mg DAILY PO 10/12/24 10:00 10/12/24 08:35 0.4 MG Patient Own Medication 1 tab DAILY PO 10/12/24 10:00 UNV Atorvastatin Calcium 80 mg HS PO 10/11/24 22:00 10/11/24 21:14 80 MG laboratory and microbiology Laboratory Tests 10/12/24 01:56 Test 10/12/24 01:56 Range/Units Serum Glucose 122 H 74-106 mg/dL Assessment/Plan acute hypoxemic resp failure h/o lung cancer s/p resection in [address] effusion COPD events VQ neg've dc heparin events 1l of fluid drained from right pl space samples sent for cytology management plan wean off 02 complete abx bronchodilators supportive care management per primary team family updated Dietary Evaluation Review Comments: 1) CCHO 60gm + renal specific 60gm protein 2) Refer to CDE on DC 3) Continue current POC Expected Outcomes/Goals: To meet >75% estimated needs Fu 3-5 days Plan discussed with: Other (rn) FRANCESCO DOTSON MD Oct 12, 2024 13:06
--- NOTE | 2024-10-12 13:10 | DVHNC2 ---
Procedure - right sided thoracentesis us guided consent obtained time out performed per protocol chloraprep x 3 lidocaine 1% 10 cc posterior approach 1 liter of blood tinged fluid obtained with catheter size 8.0F samples sent for cytology cell count/dif pt glucose, LDH band aid applied no complications CXR ordered FRANCESCO DOTSON MD Oct 12, 2024 13:10
--- NOTE | 2024-10-12 14:41 | DVH ---
INDICATION: post thoracentesis evalation TECHNIQUE: Frontal view of the chest. COMPARISON: XY CHEST PORTABLE on DOS: 10/08/24 FINDINGS: Cardiomegaly. . Decreased right pleural effusion status post thoracentesis.. The lungs are clear. The bony structures of the chest are intact without fracture. IMPRESSION: 1. No pneumothorax. Cardiomegaly with CHF.
[2024-10-12 14:43] LABS: Body Fluid Red Blood Cells 28622 CUMM (0-2000); Body Fluid White Blood Cells 311 CUMM (0-200)
--- NOTE | 2024-10-12 18:27 | DVHPN2 ---
Progress Note Date Seen: Oct 12, 2024 Medical Necessity Reason Pt with a Central, PICC or Fol: No Subjective Patient reports: Other Review of Systems: Deferred Objective vital signs Vital Sign Date Time Temp Pulse Resp B/P (MAP) Pulse Ox O2 Delivery O2 Flow Rate FiO2 10/12/24 18:12 155 104/70 10/12/24 17:15 98.1 18 92 98.1 10/12/24 10:00 Nasal Cannula* 2 28 Total Intake and Output 10/11/24 10/11/24 10/12/24 15:00 23:00 07:00 Intake Total 50 ml 1700 ml 500 ml Output Total 2750 ml 1275 ml Balance 50 ml -1050 ml -775 ml medications Current Medications Medications Dose Ordered Sig/[place] Route Start Time Stop Time Status Last Admin Dose Admin Diagnostic Test (Pha) 1 strip ACHS 10/08/24 22:00 10/12/24 17:19 1 STRIP Insulin Human Regular AC SC 10/09/24 07:00 10/12/24 17:20 4 UNITS Insulin Human Regular HS SC 10/08/24 22:00 10/11/24 21:18 2 UNITS Dextrose 50 ml UD PRN IV 10/08/24 20:00 Lorazepam 0.5 mg Q6HP PRN PO 10/08/24 20:00 Docusate Sodium 100 mg BIDPRN PRN PO 10/08/24 20:00 Acetaminophen 650 mg Q6HP PRN PO 10/08/24 20:00 10/12/24 08:35 650 MG Ondansetron HCl 4 mg Q4HP PRN IV 10/08/24 20:00 Morphine Sulfate 1 mg Q4HPRN PRN IV 10/08/24 20:00 Furosemide 40 mg BIDD IV 10/09/24 06:00 10/12/24 17:19 40 MG Albuterol 2.5 mg Q6HP PRN NEB 10/08/24 20:00 10/12/24 17:47 2.5 MG Ceftriaxone Sodium 50 ml @ 100 mls/hr DAILY IV 10/08/24 20:00 10/12/24 08:35 100 MLS/HR Clopidogrel Bisulfate 75 mg DAILY PO 10/10/24 10:00 10/12/24 08:36 75 MG Metoprolol Tartrate 2.5 mg Q4HP PRN IV 10/10/24 03:15 10/12/24 18:12 2.5 MG Ipratropium [place] 0.5 mg Q4HPRN PRN NEB 10/11/24 01:15 10/12/24 17:47 0.5 MG Allopurinol 100 mg DAILY PO 10/12/24 10:00 10/12/24 08:35 100 MG Clopidogrel Bisulfate 75 mg DAILY PO 10/12/24 10:00 Cancel Metoprolol Tartrate 25 mg BID PO 10/11/24 22:00 10/12/24 08:36 25 MG Tamsulosin HCl 0.4 mg DAILY PO 10/12/24 10:00 10/12/24 08:35 0.4 MG Patient Own Medication 1 tab DAILY PO 10/12/24 10:00 UNV Atorvastatin Calcium 80 mg HS PO 10/11/24 22:00 10/11/24 21:14 80 MG Examination: GENERAL:Normal, LUNGS:Abnormal, CVS:Normal, MSK:Abnormal, NEURO:Normal laboratory and microbiology Laboratory Tests 10/12/24 01:56 Test 10/12/24 01:56 Range/Units Serum Glucose 122 H 74-106 mg/dL Problem List/Assessment/Plan Problem List/Assessment/Plan Acute kidney injury on chronic kidney disease stage 4 Severe systolic and diastolic heart failure with ejection fraction of 25% History of multivessel coronary artery bypass Hypertension Pleural effusion recs Continue diuretics Renal function stable Nephrology follow up in [place] after dc Plan discussed with: Patient, Spouse, Son Dietary Evaluation Review Comments: 1) CCHO 60gm + renal specific 60gm protein 2) Refer to CDE on DC 3) Continue current POC Expected Outcomes/Goals: To meet >75% estimated needs Fu 3-5 days SERA TAVERA MD Oct 12, 2024 18:27
--- NOTE | 2024-10-12 23:15 | DVHPN2 ---
Progress Note - Dictate Date Seen: Oct 12, 2024 Medical Necessity Reason Pt with a Central, PICC or Fol: No Subjective Patient was seen and evaluated in follow up. Patient is on 2 LPM NC. Patient underwent right sided thoracentesis with 1 liter of blood tinged fluid removed. Patient reports some improvement in SOB. BUN 65, Electronic Data Interchange Specialist 3.73. Telemetry reviewed. vital signs Vital Sign Date Time Temp Pulse Resp B/P (MAP) Pulse Ox O2 Delivery O2 Flow Rate FiO2 10/12/24 22:05 115 126/85 10/12/24 21:00 97.8 18 98 97.8 10/12/24 20:00 Nasal Cannula* 2 28 Total Intake and Output 10/11/24 10/11/24 10/12/24 15:00 23:00 07:00 Intake Total 50 ml 1700 ml 500 ml Output Total 2750 ml 1275 ml Balance 50 ml -1050 ml -775 ml medications Current Medications Medications Dose Ordered Sig/[place] Route Start Time Stop Time Status Last Admin Dose Admin Diagnostic Test (Pha) 1 strip ACHS 10/08/24 22:00 10/12/24 21:09 1 STRIP Insulin Human Regular AC SC 10/09/24 07:00 10/12/24 17:20 4 UNITS Insulin Human Regular HS SC 10/08/24 22:00 10/12/24 21:09 4 UNITS Dextrose 50 ml UD PRN IV 10/08/24 20:00 Lorazepam 0.5 mg Q6HP PRN PO 10/08/24 20:00 Docusate Sodium 100 mg BIDPRN PRN PO 10/08/24 20:00 Acetaminophen 650 mg Q6HP PRN PO 10/08/24 20:00 10/12/24 20:03 650 MG Ondansetron HCl 4 mg Q4HP PRN IV 10/08/24 20:00 Morphine Sulfate 1 mg Q4HPRN PRN IV 10/08/24 20:00 Furosemide 40 mg BIDD IV 10/09/24 06:00 10/12/24 17:19 40 MG Albuterol 2.5 mg Q6HP PRN NEB 10/08/24 20:00 10/12/24 17:47 2.5 MG Ceftriaxone Sodium 50 ml @ 100 mls/hr DAILY IV 10/08/24 20:00 10/12/24 08:35 100 MLS/HR Clopidogrel Bisulfate 75 mg DAILY PO 10/10/24 10:00 10/12/24 08:36 75 MG Metoprolol Tartrate 2.5 mg Q4HP PRN IV 10/10/24 03:15 10/12/24 18:12 2.5 MG Ipratropium [place] 0.5 mg Q4HPRN PRN NEB 10/11/24 01:15 10/12/24 17:47 0.5 MG Allopurinol 100 mg DAILY PO 10/12/24 10:00 10/12/24 08:35 100 MG Clopidogrel Bisulfate 75 mg DAILY PO 10/12/24 10:00 Cancel Metoprolol Tartrate 25 mg BID PO 10/11/24 22:00 10/12/24 21:05 25 MG Tamsulosin HCl 0.4 mg DAILY PO 10/12/24 10:00 10/12/24 08:35 0.4 MG Patient Own Medication 1 tab DAILY PO 10/12/24 10:00 UNV Atorvastatin Calcium 80 mg HS PO 10/11/24 22:00 10/12/24 21:04 80 MG objective GENERAL: Alert and oriented x 3. No acute distress. Morbidly obese. EYES: PERRL, EOMI. Anicteric. HENT: Moist mucous membranes. LUNGS: Coarse breath sounds. CARDIOVASCULAR: Regular rate and rhythm. ABDOMEN: Soft, nontender and nondistended. EXTREMITIES: 1+ pitting edema. NEUROLOGIC: No focal neurological deficits. SKIN: Warm, dry. laboratory and microbiology Laboratory Tests 10/12/24 01:56 Test 10/12/24 01:56 Range/Units Serum Glucose 122 H 74-106 mg/dL Problem List Rule out structural heart disease. Severe coronary artery disease status post quintuple bypass CABG in 2023 (on Plavix). Hypertensive urgency, resolved. Dyslipidemia. Rule out pulmonary embolism. COPD. Lung cancer status post right lower lobe lobectomy. Sleep apnea. History bladder cancer status post bladder tumor resection. Chronic kidney disease. Insulin-dependent type 2 diabetes mellitus. Peripheral neuropathy. History of TIA. Previous heavy tobacco use. Morbid obesity. Aortic stenosis. Mild pulmonary HTN. Assessment/Plan Continued all current supportive medical care. IV antibiotics as ordered. Plavix, Metoprolol. Diuretics with Lasix. Heparin drip per pharmacy. Morphine for pain management. Additional plan as per the hospital course. Dietary Evaluation Review Comments: 1) CCHO 60gm + renal specific 60gm protein 2) Refer to CDE on DC 3) Continue current POC Expected Outcomes/Goals: To meet >75% estimated needs Fu 3-5 days Plan discussed with: Patient TINY COOPER MD Oct 12, 2024 23:15
[2024-10-13] VITALS (11 sets, daily range): BP systolic 97–107; BP diastolic 60–72; PULSE 79–124; RESP 18–21; TEMP 97.4–98.2; O2SAT 97–100
[2024-10-13] MEDS: DOCUSATE SOD 100 MG CAP PO PRN (06:25)
--- NOTE | 2024-10-13 11:52 | DVHPN2 ---
Reviewed: Care Plan, H&P, Labs, Medications, Previous Orders, Radiology Changes from previous H/P or p: No Changes Eyes: No Pain, No Vision change, No Conjunctivae inflammation, No Eyelid inflammation, No Other, No Redness ENT: No Ear pain, No Ear discharge, No Nose pain, No Nose discharge, No Nose congestion, No Mouth pain, No Mouth swelling, No Throat pain, No Throat swelling, No Other Cardiovascular: Chest Pain; No Palpitations, No Orthopnea, No Paroxysmal Noc. Dyspnea, No Edema, No Lt Headedness, No Other Respiratory: Cough, Shortness of breath, SOB with excertion Gastrointestinal: No Nausea, No Vomiting, No Abdominal Pain, No Diarrhea, No Constipation, No Melena, No Hematochezia, No Other Genitourinary: No Dysuria, No Frequency, No Incontinence, No Hematuria, No Retention, No Other Musculoskeletal: No other, No neck pain, No shoulder pain, No arm pain, No back pain, No hand pain, No leg pain, No foot pain Skin: No Rash, No Lesions, No Jaundice, No Bruising, No Other Objective Vitals Vital Signs Date Time Temp Pulse Resp B/P (MAP) Pulse Ox O2 Delivery O2 Flow Rate FiO2 10/13/24 11:37 116 110/73 10/13/24 09:05 98.2 21 98 98.2 10/13/24 05:49 Nasal Cannula* 2 28 Intake/Output Intake and Output 10/13/24 07:00 Intake Total 890 ml Output Total 7875 ml Balance -6985 ml Intake Oral 840 ml IV Total 50 ml Output Urine Total 7875 ml Medications Current Medications Medications Dose Ordered Sig/[place] Route Start Time Stop Time Status Last Admin Dose Admin Diagnostic Test (Pha) 1 strip ACHS 10/08/24 22:00 10/13/24 06:26 1 STRIP Insulin Human Regular AC SC 10/09/24 07:00 10/13/24 06:33 4 UNITS Insulin Human Regular HS SC 10/08/24 22:00 10/12/24 21:09 4 UNITS Dextrose 50 ml UD PRN IV 10/08/24 20:00 Lorazepam 0.5 mg Q6HP PRN PO 10/08/24 20:00 Docusate Sodium 100 mg BIDPRN PRN PO 10/08/24 20:00 10/13/24 06:25 100 MG Acetaminophen 650 mg Q6HP PRN PO 10/08/24 20:00 10/13/24 05:20 650 MG Ondansetron HCl 4 mg Q4HP PRN IV 10/08/24 20:00 Morphine Sulfate 1 mg Q4HPRN PRN IV 10/08/24 20:00 Furosemide 40 mg BIDD IV 10/09/24 06:00 10/13/24 06:25 40 MG Albuterol 2.5 mg Q6HP PRN NEB 10/08/24 20:00 10/13/24 05:49 2.5 MG Ceftriaxone Sodium 50 ml @ 100 mls/hr DAILY IV 10/08/24 20:00 10/13/24 09:42 100 MLS/HR Clopidogrel Bisulfate 75 mg DAILY PO 10/10/24 10:00 10/13/24 09:40 75 MG Metoprolol Tartrate 2.5 mg Q4HP PRN IV 10/10/24 03:15 10/13/24 05:20 2.5 MG Ipratropium [place] 0.5 mg Q4HPRN PRN NEB 10/11/24 01:15 10/13/24 05:49 0.5 MG Allopurinol 100 mg DAILY PO 10/12/24 10:00 10/13/24 09:41 100 MG Clopidogrel Bisulfate 75 mg DAILY PO 10/12/24 10:00 Cancel Metoprolol Tartrate 25 mg BID PO 10/11/24 22:00 10/13/24 09:41 25 MG Tamsulosin HCl 0.4 mg DAILY PO 10/12/24 10:00 10/13/24 09:41 0.4 MG Patient Own Medication 1 tab DAILY PO 10/12/24 10:00 UNV Atorvastatin Calcium 80 mg HS PO 10/11/24 22:00 10/12/24 21:04 80 MG Laboratory Results Laboratory Tests 10/12/24 01:56 Urinalysis Test 10/08/24 20:15 Urine Color Colorless (Yellow) Urine Clarity Clear (Clear) Urine pH 6.0 (5.0-9.0) Urine Specific [place] 1.010 (1.001-1.035) Urine Protein 2+ (Negative) H Urine Ketones Negative (Negative) Urine Blood 1+ /uL (Negative) H Urine Nitrite Negative (Negative) Urine Bilirubin Negative (Negative) Urine Urobilinogen Normal mg/dL (Negative) Urine Leukocyte Esterase Negative /uL (Negative) Urine RBC 7 /hpf (0 - 3) Urine Microscopic WBC 1 /HPF (0-3) Urine Squamous Epithelial Cells None seen /hpf (<5) Urine Bacteria None seen /hpf (None Seen) Urine Glucose 2+ mg/dL (Normal) H Labs and/or images reviewed: Labs reviewed by me, Image(s) reviewed by me Assessment/Plan Assessment/Plan Patient was transferred from urgent care, [facility] Acute on chronic hypoxic respiratory failure Right pleural effusion: Pulmonary consult for Dr. Groves Radiology consult for thoracentesis CKD 4 with fluid overload consult for Dr. Riojas Coronary artery disease History of [place] Hypertension Acute exacerbation of severe systolic congestive heart failure ejection fraction 25 percent with severe and critical aortic stenosis, cardiology Dr. Phillips advised the patient needs aortic valve replacement and advised transfer to [place] Acute COPD exacerbation Uncontrolled diabetes: Insulin sliding scale Acute hyperkalemia potassium 5.2. Treatment per protocol Elevated D-dimer 3.85 PE ruled out by negative V/Q scan, heparin discontinued DVT lower extremities ruled out History of CABG Jun 2023 History of lung cancer S/P right lower lobectomy November 2023 Right pleural effusion: Status post drainage of 1 L of fluid by Dr. Avila V/Q scan ruled out PE pending Time Spent 50 minutes Advanced care planning time 20 minutes Patient is full code Patient being transferred to [place] for aortic valve repair Plan discussed with: Patient Date of Service: Oct 13, 2024 Billing Provider: LATOYA DOTSON MD Common Visit Codes: [id number] INP/OBS CARE(HIGH) LATOYA DOTSON MD Oct 13, 2024 11:52
[2024-10-13 13:08] LABS: Protein, Body Fluid 2.2 g/dL (.)
--- NOTE | 2024-10-13 13:12 | DVHDS2 ---
Discharge Summary Date of Admission Oct 08, 2024 at 19:53 Date of Discharge: Oct 13, 2024 Admitting Diagnosis Shortness of breath Wounds: Thoracentesis Labs/Diagnostic Data: Laboratory Results Test 10/13/24 11:45 10/12/24 11:00 10/12/24 01:56 10/11/24 17:59 POC Glucose 225 mg/dl (70-106) Body Fluid Source Pleural fluid Body Fluid WBC (Manual) 311 CUMM (0-200) Body Fluid RBC (Manual) 52898 CUMM (0-2000) Body Fluid Mononuclear Cells 88 % Body Fluid Polymorphonuclear Cells 12 % (0-25) White Blood Count 7.3 10^3/uL (4.4-10.8) Red Blood Count 3.89 10^6/uL (4.5-5.90) Hemoglobin 11.0 g/dL (13.5-17.5) Hematocrit 33.3 % (41.0-53.0) Mean Corpuscular Volume 85.5 fL (80.0-100.0) Mean Corpuscular Hemoglobin 28.2 pg (28.0-32.0) Mean Corpuscular Hemoglobin Concent 33.0 g/dL (32.0-36.0) Red Cell Distribution Width 17.3 % (11.8-14.3) Platelet Count 214 10^3/uL (140-450) Mean Platelet Volume 9.6 fL (6.9-10.8) Neutrophils (%) (Auto) 64.7 % (37.0-80.0) Lymphocytes (%) (Auto) 19.8 % (10.0-50.0) Monocytes (%) (Auto) 9.8 % (0.0-12.0) Eosinophils (%) (Auto) 4.6 % (0.0-7.0) Basophils (%) (Auto) 1.1 % (0.0-2.0) Neutrophils # (Auto) 4.7 10 ^3/uL (1.6-8.6) Lymphocytes # (Auto) 1.4 10 ^3/uL (0.4-5.4) Monocytes # (Auto) 0.7 10 ^3/uL (0-1.3) Eosinophils # (Auto) 0.3 10 ^3/uL (0-0.8) Basophils # (Auto) 0.1 10 ^3/uL (0-0.2) Nucleated Red Blood Cells 0.0 % Activated Partial Thromboplast Time 45.3 SEC (24.5-34.5) Sodium Level 137 mmol/L (136-145) Potassium Level 4.2 mmol/L (3.5-5.1) Chloride Level 100 mmol/L (98-107) Carbon Dioxide Level 28 mmol/L (20-31) Anion Gap 9 (5-15) Blood Urea Nitrogen 65 mg/dL (9-23) Creatinine 3.73 mg/dL (0.700-1.30) Glomerular Filtration Rate Calc 16 mL/min (>90) BUN/Creatinine Ratio 17.4 (10.0-20.0) Serum Glucose 122 mg/dL (74-106) Calcium Level 9.4 mg/dL (8.7-10.4) Magnesium Level 1.7 mg/dL (1.6-2.6) Prothrombin Time 11.2 sec (9.3-11.8) Prothrombin Time INR 1.06 (0.9-1.15) Test 10/09/24 15:46 10/09/24 02:22 10/08/24 20:58 10/08/24 20:52 Triglycerides Level 142 mg/dL (< 150) Cholesterol Level 125 mg/dL (< 200) LDL Cholesterol 67 mg/dL (< 100) HDL Cholesterol 37 mg/dL (40-59) Thyroid Stimulating Hormone (TSH) 0.61 uIU/mL (0.55-4.78) Hemoglobin A1c 6.2 % A1C (<5.7) Troponin I High Sensitivity 55 ng/L (</=54) Blood Gas Specimen Type Arterial Blood Gas Sample Site Right radial Blood Gas Patient Temperature 37.0 Arterial Blood Date Drawn [id number] Arterial Blood pH 7.362 (7.350-7.450) Arterial Blood Partial Pressure CO2 40.6 mmHg (35.0-48.0) Arterial Blood Partial Pressure O2 108.3 mmHg (83.0-108.0) Arterial Blood HCO3 22.5 mmol/L (21.0-28.0) Arterial Blood Oxygen Saturation 97.9 % (94.0-98.0) Arterial Blood Base Excess -2.7 mmol/L (-2.0-3.0) Arterial Blood Oxyhemoglobin 96.8 % (94.0-98.0) Arterial Blood Carboxyhemoglobin 0.7 % (0.5-1.5) Arterial Blood Methemoglobin 0.4 % (0.0-1.5) Kody Test Yes Blood Gas Total Hemoglobin 11.80 g/dL (13.5-17.5) Blood Gas Liter Flow 2.00 Blood Gas Modality Nasal cannula FiO2 % 28.0 Test 10/08/24 20:15 10/08/24 17:02 Urine Color Colorless (Yellow) Urine Clarity Clear (Clear) Urine pH 6.0 (5.0-9.0) Urine Specific [place] 1.010 (1.001-1.035) Urine Protein 2+ (Negative) Urine Ketones Negative (Negative) Urine Blood 1+ /uL (Negative) Urine Nitrite Negative (Negative) Urine Bilirubin Negative (Negative) Urine Urobilinogen Normal mg/dL (Negative) Urine Leukocyte Esterase Negative /uL (Negative) Urine RBC 7 /hpf (0 - 3) Urine Microscopic WBC 1 /HPF (0-3) Urine Squamous Epithelial Cells None seen /hpf (<5) Urine Bacteria None seen /hpf (None Seen) Urine Glucose 2+ mg/dL (Normal) D-Dimer, Quantitative 3.85 mg/L FEU (0.0-0.49) Lactic Acid Level 1.1 mmol/L (0.4-2.0) Total Bilirubin 0.3 mg/dL (0.2-1.0) Aspartate Amino Transferase (AST) 25 U/L (13-40) Alanine Aminotransferase (ALT) 28 U/L (7-40) Alkaline Phosphatase 94 U/L (46-116) B-Type Natriuretic Peptide 311.28 pg/mL (0-100) Total Protein 6.2 g/dL (5.7-8.2) Albumin 3.7 g/dL (3.2-4.8) Other Laboratory Tests 10/12/24 01:56 Brief Hx & Hospital Course: Patient Was transferred to the [facility] from [facility] in [place]. Patient has a history of hypertension [place] COPD diabetes history of lung cancer status post right lower lobectomy in November 2023. Patient was admitted for shortness of breaths found to have right pleural effusion pulmonary consult by Dr. Groves patient had 1 L of fluid drained from the right hemithorax patient has severe systolic congestive heart failure exacerbation with 25 percent ejection fraction seen by Cardiology Dr. Phillips patient has a critical aortic stenosis advised transferred to higher level of care for aortic valve repair. Patient was also seen by grill cook for fluid overload and diagnosed with a chronic kidney disease stage 4 D-dimer was elevated 3.85 PE ruled out by negative V/Q scan and heparin was discontinued DVT ruled out history of CABG in June 2023. Patient is being transferred to [place] for aortic valve repair general condition poor but stable at the time of transfer. Consults/Reason for consult Dr. Phillips Pulmonology Dr. Mendez Operations or Procedures Thoracentesis CT chest without contrast Condition at Discharge: Poor Final Diagnosis/Problems List Acute on chronic hypoxic respiratory failure Right pleural effusion: Pulmonary consult for Dr. Groves Radiology consult for thoracentesis CKD 4 with fluid overload consult for Dr. Riojas Coronary artery disease History of [place] Hypertension Acute exacerbation of severe systolic congestive heart failure ejection fraction 25 percent with severe and critical aortic stenosis, cardiology Dr. Phillips advised the patient needs aortic valve replacement and advised transfer to [place] Acute COPD exacerbation Uncontrolled diabetes: Insulin sliding scale Acute hyperkalemia potassium 5.2. Treatment per protocol Elevated D-dimer 3.85 PE ruled out by negative V/Q scan, heparin discontinued DVT lower extremities ruled out History of CABG Jun 2023 History of lung cancer S/P right lower lobectomy November 2023 Right pleural effusion: Status post drainage of 1 L of fluid by Dr. Avila V/Q scan ruled out PE pending Time Spent 50 minutes Advanced care planning time 20 minutes Patient is full code Patient being transferred to [place] for aortic valve repair Discharge Disposition: Acute Care Facility Discharge Instruct/Medications Diet: Cardiac 2g Na,low cholest Activity: Bed rest Follow Up/Referral: Follow up with the [facility] Medications: see list 39 (TIME TAKEN FOR DISCHARGE SUMMARY 39 MINUTES) Discharge Statement: "Patient was advised to return to the ER or call 911 if any headaches, dizziness, shortness of breath, chest pain, abdominal pain, bleeding, fevers, or worsening of medical condition. Patient was counseled about treatment plan, medications, possible side effects, patientverbalized understanding. All questions were answered to the best of my ability. This discharge took greater then 30 minutes in planning, reviewing documentation, counseling the patient, and discussing with other team members." ASSESSMENT ASSESSMENT Hospital Course Marginal improvement Assessment Acute on chronic hypoxic respiratory failure Right pleural effusion: Pulmonary consult for Dr. Groves Radiology consult for thoracentesis CKD 4 with fluid overload consult for Dr. Riojas Coronary artery disease History of [place] Hypertension Acute exacerbation of severe systolic congestive heart failure ejection fraction 25 percent with severe and critical aortic stenosis, cardiology Dr. Phillips advised the patient needs aortic valve replacement and advised transfer to [place] Acute COPD exacerbation Uncontrolled diabetes: Insulin sliding scale Acute hyperkalemia potassium 5.2. Treatment per protocol Elevated D-dimer 3.85 PE ruled out by negative V/Q scan, heparin discontinued DVT lower extremities ruled out History of CABG Jun 2023 History of lung cancer S/P right lower lobectomy November 2023 Right pleural effusion: Status post drainage of 1 L of fluid by Dr. Avila V/Q scan ruled out PE pending Time Spent 50 minutes Advanced care planning time 20 minutes Patient is full code Patient being transferred to [place] for aortic valve repair Date of Service: Oct 13, 2024 Billing Provider: LATOYA DOTSON MD Common Visit Codes: [id number] DISCH DAY >30min LATOYA DOTSON MD Oct 13, 2024 13:12
[2024-10-13 15:21] LABS: COVID19 ANTIGEN SOFIA FIA NEGATIVE (NEGATIVE)
--- NOTE | 2024-10-13 18:33 | DVHPN2 ---
Progress Note Date Seen: Oct 13, 2024 Medical Necessity Reason Pt with a Central, PICC or Fol: No Subjective Patient reports: Feels better Review of Systems: HEENT:Normal, CVS:Normal, RESPIRATORY:Normal, GI:Abnormal (constipation), :Normal, MSK:Normal, NEURO:Normal Objective vital signs Vital Sign Date Time Temp Pulse Resp B/P (MAP) Pulse Ox O2 Delivery O2 Flow Rate FiO2 10/13/24 17:37 97.4 101 19 99 10/13/24 17:29 105/60 10/13/24 10:00 Nasal Cannula* 2 28 Total Intake and Output 10/12/24 10/12/24 10/13/24 15:00 23:00 07:00 Intake Total 50 ml 540 ml 300 ml Output Total 400 ml 1975 ml 5500 ml Balance -350 ml -1435 ml -5200 ml medications Current Medications Medications Dose Ordered Sig/[place] Route Start Time Stop Time Status Last Admin Dose Admin Diagnostic Test (Pha) 1 strip ACHS 10/08/24 22:00 10/13/24 17:29 1 STRIP Insulin Human Regular AC SC 10/09/24 07:00 10/13/24 17:29 8 UNITS Insulin Human Regular HS SC 10/08/24 22:00 10/12/24 21:09 4 UNITS Dextrose 50 ml UD PRN IV 10/08/24 20:00 Lorazepam 0.5 mg Q6HP PRN PO 10/08/24 20:00 Docusate Sodium 100 mg BIDPRN PRN PO 10/08/24 20:00 10/13/24 06:25 100 MG Acetaminophen 650 mg Q6HP PRN PO 10/08/24 20:00 10/13/24 13:17 650 MG Ondansetron HCl 4 mg Q4HP PRN IV 10/08/24 20:00 Morphine Sulfate 1 mg Q4HPRN PRN IV 10/08/24 20:00 Furosemide 40 mg BIDD IV 10/09/24 06:00 10/13/24 17:29 40 MG Albuterol 2.5 mg Q6HP PRN NEB 10/08/24 20:00 10/13/24 05:49 2.5 MG Ceftriaxone Sodium 50 ml @ 100 mls/hr DAILY IV 10/08/24 20:00 10/13/24 09:42 100 MLS/HR Clopidogrel Bisulfate 75 mg DAILY PO 10/10/24 10:00 10/13/24 09:40 75 MG Metoprolol Tartrate 2.5 mg Q4HP PRN IV 10/10/24 03:15 10/13/24 05:20 2.5 MG Ipratropium [place] 0.5 mg Q4HPRN PRN NEB 10/11/24 01:15 10/13/24 05:49 0.5 MG Allopurinol 100 mg DAILY PO 10/12/24 10:00 10/13/24 09:41 100 MG Clopidogrel Bisulfate 75 mg DAILY PO 10/12/24 10:00 Cancel Metoprolol Tartrate 25 mg BID PO 10/11/24 22:00 10/13/24 09:41 25 MG Tamsulosin HCl 0.4 mg DAILY PO 10/12/24 10:00 10/13/24 09:41 0.4 MG Patient Own Medication 1 tab DAILY PO 10/12/24 10:00 UNV Atorvastatin Calcium 80 mg HS PO 10/11/24 22:00 10/12/24 21:04 80 MG Examination: GENERAL:Normal, HEENT:Normal, NECK:Normal, LUNGS:Normal, CVS:Normal, ABDOMEN:Normal, MSK:Normal, SKIN:Normal, NEURO:Normal, :Normal laboratory and microbiology Laboratory Tests 10/12/24 01:56 Test 10/12/24 01:56 Range/Units Serum Glucose 122 H 74-106 mg/dL Problem List/Assessment/Plan Problem List/Assessment/Plan Acute kidney injury on chronic kidney disease stage 4 Severe systolic and diastolic heart failure with ejection fraction of 25% History of multivessel coronary artery bypass Hypertension Pleural effusion recs Continue diuretics Renal function stable Nephrology follow up in bath after dc Plan discussed with: Patient, Spouse, Son Dietary Evaluation Review Comments: 1) CCHO 60gm + renal specific 60gm protein 2) Refer to CDE on DC 3) Continue current POC Expected Outcomes/Goals: To meet >75% estimated needs Fu 3-5 days SERA TAVERA MD Oct 13, 2024 18:33
--- NOTE | 2024-10-13 23:14 | DVHPN2 ---
Progress Note - Dictate Date Seen: Oct 13, 2024 Medical Necessity Reason Pt with a Central, PICC or Fol: No Subjective Patient was seen and evaluated in follow up. Patient is on 2 LPM NC. Patient has no new complaints at this time. Patient denies any cardiac symptoms. Patient is cardiac stable for discharge. Telemetry reviewed. vital signs Vital Sign Date Time Temp Pulse Resp B/P (MAP) Pulse Ox O2 Delivery O2 Flow Rate FiO2 10/13/24 13:03 97.7 115 21 101/67 (78) 99 97.7 10/13/24 05:49 Nasal Cannula* 2 28 Total Intake and Output 10/12/24 10/12/24 10/13/24 15:00 23:00 07:00 Intake Total 50 ml 540 ml 300 ml Output Total 400 ml 1975 ml 5500 ml Balance -350 ml -1435 ml -5200 ml medications Current Medications Medications Dose Ordered Sig/[place] Route Start Time Stop Time Status Last Admin Dose Admin Diagnostic Test (Pha) 1 strip ACHS 10/08/24 22:00 10/13/24 11:50 1 STRIP Insulin Human Regular AC SC 10/09/24 07:00 10/13/24 11:51 8 UNITS Insulin Human Regular HS SC 10/08/24 22:00 10/12/24 21:09 4 UNITS Dextrose 50 ml UD PRN IV 10/08/24 20:00 Lorazepam 0.5 mg Q6HP PRN PO 10/08/24 20:00 Docusate Sodium 100 mg BIDPRN PRN PO 10/08/24 20:00 10/13/24 06:25 100 MG Acetaminophen 650 mg Q6HP PRN PO 10/08/24 20:00 10/13/24 13:17 650 MG Ondansetron HCl 4 mg Q4HP PRN IV 10/08/24 20:00 Morphine Sulfate 1 mg Q4HPRN PRN IV 10/08/24 20:00 Furosemide 40 mg BIDD IV 10/09/24 06:00 10/13/24 06:25 40 MG Albuterol 2.5 mg Q6HP PRN NEB 10/08/24 20:00 10/13/24 05:49 2.5 MG Ceftriaxone Sodium 50 ml @ 100 mls/hr DAILY IV 10/08/24 20:00 10/13/24 09:42 100 MLS/HR Clopidogrel Bisulfate 75 mg DAILY PO 10/10/24 10:00 10/13/24 09:40 75 MG Metoprolol Tartrate 2.5 mg Q4HP PRN IV 10/10/24 03:15 10/13/24 05:20 2.5 MG Ipratropium [place] 0.5 mg Q4HPRN PRN NEB 10/11/24 01:15 10/13/24 05:49 0.5 MG Allopurinol 100 mg DAILY PO 10/12/24 10:00 10/13/24 09:41 100 MG Clopidogrel Bisulfate 75 mg DAILY PO 10/12/24 10:00 Cancel Metoprolol Tartrate 25 mg BID PO 10/11/24 22:00 10/13/24 09:41 25 MG Tamsulosin HCl 0.4 mg DAILY PO 10/12/24 10:00 10/13/24 09:41 0.4 MG Patient Own Medication 1 tab DAILY PO 10/12/24 10:00 UNV Atorvastatin Calcium 80 mg HS PO 10/11/24 22:00 10/12/24 21:04 80 MG objective GENERAL: Alert and oriented x 3. No acute distress. Morbidly obese. EYES: PERRL, EOMI. Anicteric. HENT: Moist mucous membranes. LUNGS: Coarse breath sounds. CARDIOVASCULAR: Regular rate and rhythm. ABDOMEN: Soft, nontender and nondistended. EXTREMITIES: 1+ pitting edema. NEUROLOGIC: No focal neurological deficits. SKIN: Warm, dry. laboratory and microbiology Laboratory Tests 10/12/24 01:56 Test 10/12/24 01:56 Range/Units Serum Glucose 122 H 74-106 mg/dL Problem List Rule out structural heart disease. Severe coronary artery disease status post quintuple bypass CABG in 2023 (on Plavix). Hypertensive urgency, resolved. Dyslipidemia. Rule out pulmonary embolism. COPD. Lung cancer status post right lower lobe lobectomy. Sleep apnea. History bladder cancer status post bladder tumor resection. Chronic kidney disease. Insulin-dependent type 2 diabetes mellitus. Peripheral neuropathy. History of TIA. Previous heavy tobacco use. Morbid obesity. Aortic stenosis. Mild pulmonary HTN. Assessment/Plan Continued all current supportive medical care. IV antibiotics as ordered. Plavix, Metoprolol. Diuretics with Lasix. Heparin drip per pharmacy. Morphine for pain management. Additional plan as per the hospital course. Dietary Evaluation Review Comments: 1) CCHO 60gm + renal specific 60gm protein 2) Refer to CDE on DC 3) Continue current POC Expected Outcomes/Goals: To meet >75% estimated needs Fu 3-5 days Plan discussed with: Patient TINY COOPER MD Oct 13, 2024 13:29
== END 2024-10-13 20:00 | disposition short-term general hospital (02) | DRG 291 ==
LOC: EDBD 16:27 → ER 16:27 → OVERFLOW 19:53 → TELE-WESTW 21:50
PROVIDERS: ADMIT Family Medicine; ATTEND Family Medicine
PROC: 0W993ZZ Drainage of Right Pleural Cavity, Percutaneous Approach (ICD-10-PCS; principal; 2024-10-12)
DX: I13.0 Hypertensive heart and chronic kidney disease with heart failure and stage 1 through stage 4 chronic kidney disease, or unspecified chronic kidney disease (principal); I50.23 Acute on chronic systolic (congestive) heart failure; J96.21 Acute and chronic respiratory failure with hypoxia; J44.1 Chronic obstructive pulmonary disease with (acute) exacerbation; N18.4 Chronic kidney disease, stage 4 (severe); N17.9 Acute kidney failure, unspecified; J90 Pleural effusion, not elsewhere classified; E11.22 Type 2 diabetes mellitus with diabetic chronic kidney disease; E11.65 Type 2 diabetes mellitus with hyperglycemia; E66.01 Morbid (severe) obesity due to excess calories; E78.5 Hyperlipidemia, unspecified; E87.5 Hyperkalemia; G47.30 Sleep apnea, unspecified; I25.10 Atherosclerotic heart disease of native coronary artery without angina pectoris; I16.0 Hypertensive urgency; N40.0 Benign prostatic hyperplasia without lower urinary tract symptoms; I44.7 Left bundle-branch block, unspecified; I35.0 Nonrheumatic aortic (valve) stenosis; Z20.822 Contact with and (suspected) exposure to COVID-19; M85.80 Other specified disorders of bone density and structure, unspecified site; E11.42 Type 2 diabetes mellitus with diabetic polyneuropathy; I27.20 Pulmonary hypertension, unspecified; M10.9 Gout, unspecified; Z91.148 Patient's other noncompliance with medication regimen for other reason; Z85.51 Personal history of malignant neoplasm of bladder; I25.2 Old myocardial infarction; Z86.73 Personal history of transient ischemic attack (TIA), and cerebral infarction without residual deficits; Z87.891 Personal history of nicotine dependence; Z88.6 Allergy status to analgesic agent; Z79.899 Other long term (current) drug therapy; Z79.4 Long term (current) use of insulin; Z95.1 Presence of aortocoronary bypass graft; Z90.49 Acquired absence of other specified parts of digestive tract; Z85.118 Personal history of other malignant neoplasm of bronchus and lung; Z68.33 Body mass index [BMI] 33.0-33.9, adult; Z90.2 Acquired absence of lung [part of]; E87.70 Fluid overload, unspecified
CPT/HCPCS: 32555; 36415; 36600; 71045; 71250; 76604; 78582; 80048; 80053; 80061; 81001; 82805; 82962; 83036; 83605; 83735; 83880; 84443; 84484; 85025; 85379; 85610; 85730; 87426; 89051; 93005; 93306; 93970; 94640; 96374; 96375; 99291; G0378; J1815